=== PATIENT | female | born 1950 | race Caucasian/White ===

== ENCOUNTER 2025-03-22 08:12 | Outpatient (REF) | payer MEDICARE, OTHER, SELFPAY ==
--- NOTE | 2025-03-22 08:17 | ECG_ITS ---
Test Reason : QTC CHECK Blood Pressure : */* mmHG Vent. Rate : 73 BPM Atrial Rate : 73 BPM P-R Int : 130 ms QRS Dur : 94 ms QT Int : 418 ms P-R-T Axes : 66 2 46 degrees QTcB Int : 460 ms Normal sinus rhythm Septal infarct , age undetermined Abnormal ECG When compared with ECG of 09-Jul-2019 14:47, No significant change was found Referred By: Marielena Tolentino Electronically Signed By: JOSH STEVENS MD
--- OUTSIDE RECORDS SUMMARY | 2025-03-22 08:18 | XMS_ITS | Encounter Summary ---
Author Organization [facility] Address [address] [facility] [address] [place] [address] Phone Care Team Providers Care Cigarette Making Examiner Name Role Phone Lisa Luque OPERATIONAL INTELLIGENCE ANALYST Unavailable [phone] Nathalie Cook MD Unavailable [phone] Yogi Payan MD Unavailable [email or web address] Nataly Pratt MD Primary Care Provider Al Reagan MD Primary Care Provider Al Reagan MD Unavailable Leticia Estevez RN Unavailable [phone] Vasu Lam MD Primary Care Provider [phone] Sotero Gray MD Unavailable David Davalos MD Unavailable [phone] Sage Harrington MD Unavailable Lupe Wade TELEPHONE ANSWERER Unavailable [phone] Encounter Details Date Type Department Care Team (Late st Contact Info) Description 06/25/2017 Procedure Pass [facility], Ct Scan - [address] [address] Social History Tobacco Use Types Packs/Day Years Used Date Smoking Tobacco: Never Smokeless Tobacco: Never Alcohol Use Standard Drinks/Week Comments No 0 (1 standard drink = 0.6 oz pur e alcohol) Comments No Sex and Gender Information Value Date Recorded Sex Assigned at Female 11/08/2021 9:45 AM EDT Legal Sex Female 7:04 PM EST Gender Identity Female 11/08/2021 9:45 AM EDT Sexual Orientation Lesbian or Jenkins 11/08/2021 9: 45 AM EDT documented as of this encounter Plan of Treatment Upcoming Encounters Date Type Department Care Team (Late st Contact Info) Description 06/07/2025 10:30 AM EDT Office Visit [facility] [address] [place] [address] Vasu Lam MD [address] [place] [address], [address] [place] [address] documented as of this encounter Visit Diagnoses Not on filedocumented in this encounter Care Teams Cigarette Making Examiner Relationship Specialty Start Date End Date Nataly Agustin MD PCP - General Internal Medicine 03/25/17 12/02/22 Al Reagan MD [address] [place] [address] PCP - General Internal Medicine 12/03/22 12/07/24 Vasu Lam MD [address] [place] [address], [address] [place] [address] PCP - General Internal Medicine 12/08/24 Lisa Luque FNP [address] [place] [address] [address], [address] [place] [address] Historical LMR Provider 01/13/17 04/07/21 Nathalie Cook MD [address] [facility]. [address], [address] [place] [address] [email or web address] Historical LMR Provider 01/13/17 04/07/21 Yogi Payan MD [email or web address] Historical LMR Provider 01/13/17 04/07/21 Al Reagan MD [address] [place] [address] [email or web address] Insurance Assigned Provider 10/04/23 12/07/24 Leticia Estevez, ALISSA 10 [place] [address] [email or web address] PHCM Granite Polisher Machine 12/24/23 01/29/24 Sotero Gray MD [address] [address] [email or web address] Nephrology 12/08/24 David Davalos MD [address] [place] [address] [email or web address] Gastroenterology 12/08/24 Sage Harrington MD [address] [place] [address] [email or web address] Medical Oncology 12/08/24 Lupe Wade, TELEPHONE ANSWERER [address] [place] [address] Psychiatry 12/08/24 documented as of this encounter Additional Source Comments The information contained in this document represents components of the legal health record. It is not the complete legal health record.[facility]
--- OUTSIDE RECORDS SUMMARY | 2025-03-22 08:18 | XMS_ITS | Encounter Summary ---
Author Organization [facility] Address [address] [facility] [address] [place] [address] Phone Care Team Providers Care Electrician'S Assistant Name Role Phone Lisa Luque BOLA Unavailable [phone] Nathalie Cook MD Unavailable [phone] Yogi Payan MD Unavailable [email or web address] Unknown, Unknown Primary Care Provider UnaNataly Rodriguez MD Primary Care Provider [phone] Al Regaan MD Primary Care Provider Al Reagan MD Unavailable Leticia Estevez RN Unavailable [phone] Vasu Lam MD Primary Care Provider Sotero Gray MD Unavailable David Davalos MD Unavailable [phone] Sage Harrington MD Unavailable Lupe Wade Unavailable [phone] Encounter Details Date Type Department Care Team (Late st Contact Info) Description 01/28/2017 Ancillary Orders [facility] Department [address] [place], [place] [id number] Nataly Agustin MD 25 [place] [address] [email or web address] Post-menopausal; Visit for screening mammogram Social History Tobacco Use Types Packs/Day Years Used Date Smoking Tobacco: Never Assessed Comments Unknown Sex and Gender Information Value Date Recorded [...] Description 06/07/2025 10:30 AM EDT Office Visit [facility] [address] [place] [address] Vasu Lam MD [address] [place] [address], [address] [place] [address] [email or web address] documented as of this encounter Results * BD DXA AXIAL (SPINE) WITH HIP (03/28/2017 2:33 PM EST) Anatomical Region Laterality Modality Bone Density Bone Density 03/28/2017 2:48 PM EST Impressions 03/28/2017 2:50 PM EST Overall normal bone mineral density but there is a decrease in density at all sites assess since prior examination of March 2013. POS -[id number] Narrative 03/28/2017 2:50 PM EST This is a 66-year-old postmenopausal white female with a perceived height loss of 1.5 inches over her lifetime. She has a history of Crohn's disease. Comparison is made to prior examination of 09/17/2013. Evaluation of the lumbar spine and hips was performed and appears to be technically adequate. Total bone mineral density in the L1-L4 vertebral bodies was calculated at 1.046 gm/cm2 with a T score of 0. This falls within the WHO classification of normal. Since prior study there is a decrease in density of 5.7% which is significant at the 95% confidence interval. Total bone mineral density in the right proximal femur was calculated at 0.895 gm/cm2 with a T-score of -0.4 falling within the WHO classification of normal. Total bone mineral density in the left proximal femur was calculated at 0.859 gm/cm2 with a T-score of -0.7 falling within the WHO classification of normal. Since prior examination there is a decrease in density of 8.1% on the right and 10.0% on the left. Both are statistically significant. Procedure Note Chon Ocampo MD - 03/28/2017 This is a 66-year-old postmenopausal white female with a perceived heightloss of 1.5 inches over her lifetime. She has a history of Crohn'sdisease. Comparison is made to prior examination of 09/17/2013. Evaluation of the lumbar spine and hips was performed and appears to betechnically adequate. Total bone mineral density in the L1-L4 vertebral bodies was calculated at1.046 gm/cm2 with a T score of 0. This falls within the WHOclassification of normal. Since prior study there is a decrease in densityof 5.7% which is significant at the 95% confidence interval. Total bone mineral density in the right proximal femur was calculated at0.895 gm/cm2 with a T-score of -0.4 falling within the WHO classificationof normal. Total bone mineral density in the left proximal femur wascalculated at 0.859 gm/cm2 with a T-score of -0.7 falling within the WHOclassification of normal. Since prior examination there is a decrease indensity of 8.1% on the right and 10.0% on the left. Both are statisticallysignificant. IMPRESSION: Overall normal bone mineral density but there is a decrease in density atall sites assess since prior examination of March 2013. POS -[id number] Nataly NAIR BD BONE DENSITY DEXA Fin al Result * BI MAMMOGRAM SCREENING WITH TOMOSYNTHESIS WITH CAD (BILATERAL) (03/28/2017 1:24 PM EST) Anatomical Region Laterality Modality Breast Left, Breast Right, Breast Bilateral Bila teral Mammography 03/28/2017 3:4 9 PM EST Impressions 03/28/2017 3:53 PM EST No findings suspicious for malignancy are identified. In the absence of a worrisome palpable abnormality, annual screening mammography is recommended. BI-RADS CATEGORY: 1 - Negative. DENSITY: The breast tissue is heterogeneously dense, an appearance which lowers the sensitivity of mammography. POS [id number] Narrative 03/28/2017 3:53 PM EST COMPARISON: 04/14/2009 through 08/14/2016 Bilateral 3-D tomosynthesis with 2-D reconstructions in the CC and MLO projection. Computer-aided detection system also utilized. No new mass, asymmetry, architectural distortion or suspicious calcifications have become apparent on either side. Procedure Note Noé Mcginnis MD - 03/28/2017 COMPARISON: 04/14/2009 through 08/14/2016 Bilateral 3-D tomosynthesis with 2-D reconstructions in the CC and MLOprojection. Computer-aided detection system also utilized. No new mass, asymmetry, architectural distortion or suspiciouscalcifications have become apparent on either side. IMPRESSION: No findings suspicious for malignancy are identified. In the absence of aworrisome palpable abnormality, annual screening mammography isrecommended. BI-RADS CATEGORY: 1 - Negative. DENSITY: The breast tissue is heterogeneously dense, an appearance whichlowers the sensitivity of mammography. POS [id number] Nataly Agustin MD [facility] EXAMS Final Result documented in this encounter Visit Diagnoses Diagnosis Post-menopausal Asymptomatic postmenopausal status (age-related) (natural) Visit for screening mammogram Post-menopausal Asymptomatic postmenopausal status (age-related) (natural) Visit for screening mammogram documented in this encounter Care Teams Electrician'S Assistant Relationship Specialty Start Date End Date Unknown, Unknown, MD PCP - General 01/18/17 03/24/17 Nataly Agustin MD PCP - General Internal Medicine 03/25/17 12/02/22 Al Reagan MD [address] [place] [address] PCP - General Internal Medicine 12/03/22 12/07/24 Vasu Lam MD [address] [facility] [place] [address] PCP - General Internal Medicine 12/08/24 Lisa Luque FNP [address] [facility], [address] [place] [address] [email or web address] Historical LMR Provider 01/13/17 04/07/21 Nathalie Cook MD [address] [facility], [address] [place] [address] [email or web address] Historical LMR Provider 01/13/17 04/07/21 Yogi Payan MD Historical LMR Provider 01/13/17 04/07/21 Al Reagan MD 40 [place] [address] Insurance Assigned Provider 10/04/23 12/07/24 Leticia Estevez, RN 10 [place], [place] [id number] [facility] Telephone Maintenance Mechanic 12/24/23 01/29/24 Sotero Gray MD [address] [facility] [address] [place] [address] Nephrology 12/08/24 David Davalos MD [address] [place] [id number] [email or web address] Gastroenterology 12/08/24 Sage Harrington MD [address] [place] [address] [email or web address] Medical Oncology 12/08/24 Lupe Wade CNS [address] [place] [address] Psychiatry 12/08/24 documented as of this encounter Additional Source Comments The information contained in this document represents components of the legal health record. It is not the complete legal health record.[facility]
--- OUTSIDE RECORDS SUMMARY | 2025-03-22 08:18 | XMS_ITS | Encounter Summary ---
Author Organization [facility] Address [address] [place] [address] Phone Care Team Providers Care Tool Machine Shop Supervisor Name Role Phone Lisa Luque BOLA Unavailable [phone] Nathalie Cook MD Unavailable [phone] Yogi Payan MD Unavailable [email or web address] Unknown, Unknown Primary Care Provider Nataly Mayorga MD Primary Care Provider [phone] Al Reagan MD Primary Care Provider [phone] Al Reagan MD Unavailable Leticia Estevez RN Unavailable [phone] Vasu Lam MD Primary Care Provider [phone] Sotero Gray MD Unavailable David Davalos MD Unavailable [phone] Sage Harrington MD Unavailable Lupe Wade Unavailable [phone] Reason for Referral * Physical Therapy (Routine) - Closed Specialty Diagnoses / Procedures Referred By Arnaldo alfaro Referred To Contact Physical Therapy Diagnoses Encounter for rehabilitation David Davalos MD Phone: tel: fax: [email or web address] [facility] [address] [place] [address] Phone: tel: Referral ID Status Reason Start Date Expiration Date Visits Re quested Visits Authorized [id number] Closed 02/25/2017 02/25/2018 1 1 Encounter Details Date Type Department Care Team (Latest Contact Info) Description 02/25/2017 Transcribe Orders [facility] [address] [place] [address] David Davalos MD [address] [place] [phone] [email or web address] Encounter for rehabilitation (Primary Dx) Social History Tobacco Use Types Packs/Day Years [...] Description 06/07/2025 10:30 AM EDT Office Visit [facility] [address] [place] [address] Vasu Lam MD [address] [place] [address], [address] [place] [address] [email or web address] Scheduled Referrals Name Type Priority Associated Diagnoses Orde r Schedule Ambulatory referral to [facility] Physical Therapy Outpatient Referral Routine Encounter for rehabilitation Ordered: 02/25/2017 documented as of this encounter Visit Diagnoses Diagnosis Encounter for rehabilitation- Primary documented in this encounter Care Teams Tool Machine Shop Supervisor Relationship Specialty Start Date End Date Unknown, Unknown, MD PCP - General 01/18/17 03/24/17 Nataly Agustin MD PCP - General Internal Medicine 03/25/17 12/02/22 Al Reagan MD 40 [place] [address] PCP - General Internal Medicine 12/03/22 12/07/24 Vasu Lam MD [address] [facility], [address] [place] [address] PCP - General Internal Medicine 12/08/24 Lisa Luque FNP [address] [facility] [address], [address] [place] [address] [email or web address] Historical LMR Provider 01/13/17 04/07/21 Nathalie Cook MD [address] [facility] [address], [address] [place] [address] [email or web address] Historical LMR Provider 01/13/17 04/07/21 Yogi Payan MD Historical LMR Provider 01/13/17 04/07/21 Al Reagan MD [address] [place] [address] [email or web address] Insurance Assigned Provider 10/04/23 12/07/24 Leticia Estevez, RN [address] [place] [address] [email or web address] PHCM Clinical Support Specialist 12/24/23 01/29/24 Sotero Gray MD 15 [facility] [address] [place] [address] [email or web address] Nephrology 12/08/24 David Davalos MD [address] [place] [address] [email or web address] Gastroenterology 12/08/24 Sage Harrington MD [address] [place] [address] [email or web address] Medical Oncology 12/08/24 Lupe Wade, TOOL DESIGN ENGINEER [address] [place] [address] Psychiatry 12/08/24 documented as of this encounter Additional Source Comments The information contained in this document represents components of the legal health record. It is not the complete legal health record.[facility]
--- OUTSIDE RECORDS SUMMARY | 2025-03-22 08:18 | XMS_ITS | Encounter Summary ---
Author Organization [facility] Address [address] [place] [address] Phone Care Team Providers Care Retail Loss Prevention Specialist Name Role Phone Nataly Agustin MD Primary Care Provider [phone] Al Reagan MD Primary Care Provider Al Reagan MD Unavailable Leticia Estevez RN Unavailable Vasu Lam MD Primary Care Provider [phone] Sotero Gray MD Unavailable David Davalos MD Unavailable [phone] Sage Harrington MD Unavailable Lupe Wade [facility] Unavailable Encounter Details Date Type Department Care Team (Late st Contact Info) Description 07/23/2021 Transcribe Orders Virtual Department 30 [place] [address] Nataly Agustin MD 25 [place] [address] Breast screening (Primary Dx) Social History Tobacco Use Types [...] Description 06/07/2025 10:30 AM EDT Office Visit [facility] [address] [place] [address] Vasu Lam MD 22 [facility], [address] [place] [address] [email or web address] documented as of this encounter Results * BI MAMMOGRAM SCREENING WITH TOMOSYNTHESIS WITH CAD (BILATERAL) (08/14/2021 11:15 AM EDT) Anatomical Region Laterality Modality Breast Left, Breast Right, Breast Bilateral Bila teral Mammography 08/14/2021 12:0 6 PM EDT Impressions 08/14/2021 12:11 PM EDT No mammographic evidence of malignancy. Recommend routine annual surveillance. BI-RADS CATEGORY: 2 - Benign finding. DENSITY: The breast tissue is heterogeneously dense, which could obscure a lesion on mammography. Narrative 08/14/2021 12:11 PM EDT 70-year-old female with no current breast symptoms. Comparison made to previous on 06/02/2020 and as far back as 08/14/2016. Interpretation made in conjunction with computer-aided detection and tomosynthesis. The breasts are heterogeneously dense, which may obscure small masses. Chronic bilateral benign calcifications. There are no suspicious masses, areas of architectural distortion, or suspicious clusters of microcalcifications. Procedure Note Vasu Vences MD - 08/14/2021 70-year-old female with no current breast symptoms. Comparison made toprevious on 06/02/2020 and as far back as 08/14/2016. Interpretation made inconjunction with computer-aided detection and tomosynthesis. The breasts are heterogeneously dense, which may obscure small masses.Chronic bilateral benign calcifications. There are no suspicious masses, areas of architectural distortion, orsuspicious clusters of microcalcifications. IMPRESSION: No mammographic evidence of malignancy. Recommend routine annualsurveillance. BI-RADS CATEGORY: 2 - Benign finding. DENSITY: The breast tissue is heterogeneously dense, which could obscurea lesion on mammography. Nataly Agustin MD IMG MG EXAMS Final Result documented in this encounter Visit Diagnoses Diagnosis Breast screening- Primary Breast screening, unspecified Breast screening Breast screening, unspecified documented in this encounter Care Teams Retail Loss Prevention Specialist Relationship Specialty Start Date End Date Nataly Agustin MD PCP - General Internal Medicine 03/25/17 12/02/22 Al Reagan MD 40 [place] [address] PCP - General Internal Medicine 12/03/22 12/07/24 Vasu Lam MD [address] [place] [address], [address] [place] [address] PCP - General Internal Medicine 12/08/24 Al Reagan MD 40 [place] [address] Insurance Assigned Provider 10/04/23 12/07/24 Leticia Estevez, RN [address] [place] [address] PSYCHIATRIC Shellfish Shucker 12/24/23 01/29/24 Sotero Gray MD 15 [facility] [address] [place] [address] [email or web address] Nephrology 12/08/24 David Davalos MD [address] [place] [address] [email or web address] Gastroenterology 12/08/24 Sage Harrington MD [address] [place] [address] [email or web address] Medical Oncology 12/08/24 Lupe Wade, CRAYON PAINTER [address] [place] [address] Psychiatry 12/08/24 documented as of this encounter Additional Source Comments The information contained in this document represents components of the legal health record. It is not the complete legal health record.[facility]
--- OUTSIDE RECORDS SUMMARY | 2025-03-22 08:18 | XMS_ITS | Clinical Summary ---
Author Organization [facility] Address [address] [place] [address] Phone Care Team Providers Care Connie Scratcher Name Role Phone Vasu Lam MD Primary Care Provider [phone] Sotero Gray MD Unavailable David Davalos MD Unavailable [phone] Sage Harrington MD Unavailable Lupe Wade FUNCTIONAL DIRECTOR Unavailable [phone] Allergies Active Allergy Reactions Criticality Noted Date Comments Amoxicillin Hives,Swelling 02/13/2017 Other reaction(s): swelling Other Reaction(s): facial swelling Medications cholecalciferol (VITAMIN D3) 2,000 unit capsule Take 2,000 Units by mouth daily. Active nortriptyline (PAMELOR) 10 MG capsuleIndications :depression Take 20 mg by mouth nightly at bedtime. Indications: depression Active b complex vitamins capsule Take 1 capsule by mouth daily. Active citalopram (CELEXA) 20 MG tablet Take 20 mg by mouth daily. 2 Active lamoTRIgine (LAMICTAL) 25 MG IMMEDIATE release tablet Take 25 mg by mouth 2 (two) times a day. 2 Active albuterol 90 mcg/actuation inhalerIndications :Intrinsic asthma with exacerbation, severe persistent Inhale 2 puffs into the lungs every 4 (four) hours as needed for wheezing or shortness of breath/dyspnea (or coughing). 8 g 1 4 Active loratadine 10 mg Cap Take 10 mg by mouth as needed. 3 Active levothyroxine (SYNTHROID, LEVOTHROID) 50 MCG tabletIndications: Other specified hypothyroidism TAKE 1 TABLET BY MOUTH EVERY DAY IN THE MORNING 90 tablet 3 5 Active fluticasone furoate-vilanteroL (BREO ELLIPTA) 200-25 mcg/dose inhalerIndications :Intrinsic asthma with exacerbation, severe persistent 1 inhalation daily, rinse and spit after use 60 each 11 5 Active OLANZapine (ZYPREXA) 7.5 MG tablet Take 7.5 mg by mouth nightly at bedtime. Active L-methylfolate (DEPLIN) 15 mg Tab Take 15 mg by mouth daily. Active sodium bicarbonate 650 mg tablet Take 650 mg by mouth 3 (three) times a day. Active magnesium oxide (MAGOX) 400 mg (241.3 mg elemental) tabletIndications: Ileostomy present Take 1 tablet (400 mg total) by mouth nightly at bedtime. 90 tablet 2 5 Active loperamide (IMODIUM) 2 mg capsuleIndications :Chronic diarrhea Take 1 capsule (2 mg total) by mouth 4 (four) times a day as needed for diarrhea. 360 capsule 2 5 Active metoprolol tartrate (LOPRESSOR) 25 MG tabletIndications: Tachycardia,Benign essential hypertension TAKE 1/2 OF A TABLET (12.5 MG TOTAL) BY MOUTH TWICE A DAY 90 tablet 3 5 Active rosuvastatin (CRESTOR) 5 MG tablet Take 5 mg by mouth 3 (three) times a week. 5 Active LORazepam (ATIVAN) 0.5 MG tablet 5 Active Active Problems Problem Noted Date Diagnosed Date Stage 3b chronic kidney disease 12/08/2024 Assessment & Plan (12/08/2024 12:17 PM EDT): Renal function has been stable. Importance of good blood pressure control is reviewed. She should avoid nonsteroidals. She will follow-up as planned with nephrology. 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 Followed by [facility] oncology Assessment & Plan (12/08/2024 12:16 PM EDT): Asymptomatic. Follow-up as planned with [facility] oncology Coronary artery calcification seen on CAT scan 0 12/08/2024 Assessment & Plan (12/08/2024 12:16 PM EDT): Asymptomatic. Agree with treatment with low-dose statin. She should avoid aspirin due to Crohn's disease. Impaired fasting glucose 12/08/2024 Chronic diarrhea 09/23/2024 Severe major depression with psychotic features 09/23/2024 Overview (12/08/2024): Hospitalized July 2024, started on olanzapine Assessment & Plan (12/08/2024 12:18 PM EDT): Doing better on olanzapine with no significant side effects. She will continue with her current medication and follow-up as planned with psychiatry. Assessment & Plan (09/23/2024 11:17 AM EDT): The patient will be able to get the olanzapine and lorazepam through her psychiatrist nurse practitioner in [place] Mrs. Wade. If need be we can bridge her with medication the olanzapine and lorazepam if she is having trouble before that follow-up appointment. Apparently the current regimen is working very well. Ileostomy present 10/27/2023 Assessment & Plan (09/23/2024 11:15 AM EDT): In accordance with the patient's requests we will call in the Imodium 2 mg 4 times daily as needed and will also call in the magnesium oxide while checking a magnesium level and a Chem-7 in the setting of chronic kidney disease stage IIIb. We can bring the kidney function and electrolytes to the attention of her machine greaser if needed. Assessment & Plan (10/27/2023 11:09 AM EDT): The patient promises to be moderate about her intake of corn and will continue to monitor herself for fluid intake versus ileostomy output regarding prerenal azotemia and lightheadedness, dehydration. Abdominal wall abscess 05/01/2022 Assessment & Plan (06/25/2023 6:49 PM EDT): With the ileostomy we need to keep a close eye on electrolytes kidney function especially where it is easy to dehydrate. Assessment & Plan (06/21/2022 9:11 AM EDT): Now resolved Assessment & Plan (05/01/2022 12:50 PM EST): Currently remains on abx - Doxy and has a JOSE drain in place F/u surgery To ER for severe sxs Kidney stone 05/01/2022 Assessment & Plan (05/01/2022 12:51 PM EST): Now resolved Stay hydrated Mild intermittent asthma without complication Assessment & Plan (06/25/2023 6:47 PM EDT): Lungs clear will continue the albuterol as needed for exacerbations. Assessment & Plan (06/21/2022 9:11 AM EDT): stable Assessment & Plan (05/01/2022 12:53 PM EST): As discussed, Mild exacerbation Risks/benefits of therapy explained, including MAT and other treatment options. Educated on inhaler uses. Crohn's disease of small and large intestines with complication 10/05/2021 Assessment & Plan (12/08/2024 12:17 PM EDT): Doing well, follow-up as planned with gastroenterology. Assessment & Plan (11/08/2021 10:21 AM EDT): Overall improved but still with small amount of drainage from sinus to umbilicus Patient to f/u with surgeon as to the plan Adjustment disorder with mixed anxiety and depre ssed mood 10/05/2021 Assessment & Plan (06/21/2022 9:11 AM EDT): feeling great Assessment & Plan (10/08/2021 7:48 AM EDT): Stable on meds Rash 10/05/2021 Assessment & Plan (05/01/2022 12:52 PM EST): Labial rash ? Vaginitis due to abx Trial of clotrimazole cream No soap when washing, water only Assessment & Plan (11/08/2021 10:21 AM EDT): Improving with triamcinolone Assessment & Plan (10/08/2021 7:49 AM EDT): Rash on anterior ankle Suspect possible eczematous plaque or due to constant irritation Trial triamcinolone With occlusive dressing Angular cheilitis 09/21/2021 Assessment & Plan (10/08/2021 7:48 AM EDT): Trial triamcinolone To derm for further eval if needed educ to minimize use Essential hypertension 09/21/2021 Assessment & Plan (11/01/2024 1:21 PM EDT): Blood pressure is well-controlled continue the antihypertensives. She may be seeing family medicine in [place] [facility] November going forward. In regards to her mood stabilizers and her tricyclic for neuropathic pain she will consider coming off of some of the behavioral health medicine due to side effects of fatigue. She is working with her psychiatrist to come off of the olanzapine and then will see if this was adequate enough to reduce her morning drowsiness. Other culprits could be carryover of the tricyclic in which case she could decrease down to 10 mg nightly. In regards to the electrolytes that were off last time, we will pursue the most recent electrolyte panel done through [facility] oncology. Assessment & Plan (05/10/2024 2:55 PM EST): Blood pressure well-controlled continue the antihypertensives as such. Assessment & Plan (10/27/2023 11:08 AM EDT): Blood pressure well-controlled continue antihypertensives as such and follow-up in 6 months for return physical. Electrolytes kidney function reviewed from recent hospital stay and negative for pathology. Assessment & Plan (01/01/2023 2:51 PM EDT): Blood pressure well controlled continue antihypertensive as such, we will follow-up in January on her wellness visit. We will do labs at that time. Continue the metoprolol at 12.5 mg p.o. twice daily. Assessment & Plan (02/07/2022 11:18 AM EST): controlled Assessment & Plan (11/08/2021 10:20 AM EDT): May not need to be on meds Long discussion today Trial off meds educ patient on red flags Assessment & Plan (10/08/2021 7:46 AM EDT): Stable on meds Pure hypercholesterolemia 09/21/2021 Assessment & Plan (10/08/2021 7:46 AM EDT): Unclear if stable, check lab Acquired hypothyroidism 09/21/2021 Assessment & Plan (12/08/2024 12:16 PM EDT): Clinically euthyroid. TSH is on the low side of the normal range. Would consider decreasing dose of levothyroxine if TSH continues in the same range. Assessment & Plan (05/10/2024 2:55 PM EST): No overt signs of hypo or hyperthyroidism continue Levoxyl at current dosing check TSH Assessment & Plan (10/27/2023 11:07 AM EDT): No clinical signs of hypothyroidism, exam unremarkable, continue Synthroid at current dosing and recheck in 6 months on physical. Assessment & Plan (06/25/2023 6:49 PM EDT): No overt signs of hyper or hypothyroidism check TSH with reflex. Assessment & Plan (10/08/2022 11:53 AM EDT): Stable on med Assessment & Plan (10/08/2021 7:46 AM EDT): Unclear if stable, check lab Vitamin D deficiency, unspecified 09/21/2021 Assessment & Plan (10/08/2022 11:53 AM EDT): Stable on supplementation Assessment & Plan (10/08/2021 7:47 AM EDT): Unclear if stable, check lab Resolved Problems Problem Noted Date Diagnosed Date Resolved Date Posterior pain of hip 09/23/20242024 Pain of left heel 09/19/2023 12/08/2024 Assessment & Plan (09/19/2023 5:02 PM EDT): Awaiting xray results. Continue to rest, wear supportive shoes. Consider referral to podiatry. Left ankle swelling 09/19/2023 12/09/19 25 Assessment & Plan (09/19/2023 5:03 PM EDT): Appears to be related to new pain in left heel/foot. Will monitor ankle circumference over the weekend. If any progressive erythema or worsened symptoms she will follow up emergently. Consider u/s duplex veins left lower extremity if not resolving. H/O ileostomy 06/25/2023 12/08/2024 Intrinsic asthma with exacer bation, severe persistent 06/25/2023 12/08/2024 Elevated blood pressure read ing without diagnosis of hypertension 05/01/2022 12/08/2024 Assessment & Plan (06/25/2023 6:46 PM EDT): Will continue to monitor blood pressure, today's blood pressure was within normal limits. Assessment & Plan (12/04/2022 9:15 AM EDT): I explained to the patient that it is important not to treat a number and that there might be a reason that the heart rate is up including insensible losses. She will keep up on her fluid intake. We can start her off on a very low-dose of metoprolol and because of the ileostomy will prescribe her metoprolol to tartrate which she can take twice daily. At the lowest dose it would be 12.5 mg and she should be very mindful about orthostasis or increasing lightheadedness in which we would cease the metoprolol. We can then in 4 weeks on a return visit increase the metoprolol to full-strength or sooner if her blood pressure log suggest to do so. Follow-up in 4 weeks. Assessment & Plan (10/08/2022 11:52 AM EDT): Unclear if controlled, Check Bps, 2x per week, call if persistantly > 140/90, Goal BP is < or = to 130/80 Assessment & Plan (06/21/2022 9:12 AM EDT): Bps currently controlled off BP meds Assessment & Plan (05/01/2022 12:51 PM EST): Reviewed list of home bps, relatively reassuring Check Bps, 2x per week, call if persistantly > 140/90, Goal BP is < or = to 130/80 Attempted to reassure patient today during visit Routine general medical exam ination at a health care facility 02/07/2022 12/08/2024 Assessment & Plan (02/07/2022 11:17 AM EST): Overall stable Declines 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 as she states that she's had ESTHER with BSO S/p Colectomy for Crohn's +SBE Mammos UTD Tachycardia 02/07/2022 12/08/2024 Assessment & Plan (02/07/2022 11:18 AM EST): Unclear etiology Check labs and MCT To ER for severe symptoms Hematuria 02/07/2022 12/08/2024 Assessment & Plan (02/07/2022 11:18 AM EST): F/u Urology Allergic conjunctivitis of both eyes 12/18/2021 12/08/2024 History of atrial fibrillation 11/08/2021 12/08/2024 Assessment & Plan (05/01/2022 12:51 PM EST): Currently in Sinus Rhythm, patient educated on red flags and concerning sxs Assessment & Plan (11/08/2021 10:20 AM EDT): Has post operative afib post hernia incarceration repair No further episodes since surgery, hopefully no longer an issue Patient denies any symptoms Bps on low side as is HR Taper off metoprolol Need for hepatitis C screening test 10/05/2021 12/08/2024 Assessment & Plan (10/08/2021 7:49 AM EDT): Patient agrees Weight gain 10/05/2021 12/08/2024 Assessment & Plan (11/08/2021 10:22 AM EDT): Weight currently stable Continues to work on healthy diet and exercise Assessment & Plan (10/08/2021 7:47 AM EDT): Long discussion Needs to focus on low carb diet and exercise Hyperglycemia 10/05/2021 12/08/2024 Assessment & Plan (10/27/2023 11:08 AM EDT): More recently glucose levels normal, check hemoglobin A1c in 6 months on physical exam. Assessment & Plan (10/08/2021 7:46 AM EDT): Prediabetes: As discussed during visit today, Educated re risk of Diabetes and lifestyle changes needed Check lab Other specified anemias 09/21/202111/29 Assessment & Plan (11/08/2021 10:15 AM EDT): Has resolved Assessment & Plan (10/08/2021 7:45 AM EDT): Unclear if stable, check lab Crohn's disease 01/18/2017 12/08/2024 Assessment & Plan (05/01/2022 12:50 PM EST): Off Humira for the abscess Patient aware of increased risk of infections due to the Humira Assessment & Plan (02/07/2022 11:18 AM EST): Stable f/u GI Assessment & Plan (10/08/2021 7:48 AM EDT): Stable f/u GI Encounters Date Type Department Care Team Description 03/11/2025 2:20 PM EST - 03/11/2025 11:59 PM EST Hospital Encounter [address] [address] Andi Rivers MD Discharge Disposition: Home or Self Care 03/10/2025 Telephone [facility] [address] [place] [address] Vasu Lam MD Medication Management 02/09/2025 12:30 PM EST Office Visit [facility] [address] [address] Gayathri Champion PA-C from Last 3 Months Immunizations Immunization Administration Dates Next Due COVID-19 (Pre-01/20) Pfizer Vaccine, mRNA, PF 06/21/2020 [id number] FORMULATION 06/02/2009 INFLUENZA, SPLIT VIRUS, TRIV ALENT W/ PRESERVATIVE IM 02/10/2006 Influenza High-Dose Quadriva lent Preservative Free IM 12/16/2022 Influenza High-Dose Trivalen t Preservative Free IM 01/08/2024,12/25/2018,01/05/2017 Influenza Quadrivalent Adjuv anted Preservative Free IM 01/03/2022,12/24/2020 Influenza Recombinant Wilmer valent Preservative Free IM 12/28/2019 Influenza Trivalent Adjuvant ed Preservative free IM 03/03/2018 Influenza, whole 06/02/2009 Pneumococcal conjugate PCV13 03/20/2018 Pneumococcal polysaccharide PPSV23 04/25/2016 RSV Vaccine (bivalent) 12/16/2022 Td, unspecified formulation 04/12/2005 Tdap 12/16/2022,01/28/2018 Zoster recombinant 05/25/2020,03/06/2020 Family History Medical History Relation Comments Breast cancer Cousin Dementia Father Prostate cancer Father 2001 Alzheimer's disease Mother Alzheimer's ? ( of this). Bladder Cancer Mother Breast cancer Mother Depression Mother Glaucoma Mother Relation Status Comments Cousin Alive Father Mother Social History Tobacco Use Types Packs/Day Years Used Date Smoking Tobacco: Never Passive Smoke Exposure: Past Smokeless Tobacco: Never Tobacco Cessation:Counseling Given: Not Answered Passive Exposure Comments:[employer]/ place of employment Alcohol Use Standard Drinks/Week Comments Not Currently 0 (1 standard drink = 0.6 oz pur e alcohol) 4 beers a month, if that Home Health Assessment: Transportation Answer Date Recorded Lack of Transportation (Medical) No 05/11/2022 Lack of Transportation (Non-Medical) No 05/11/2022 Patient Unable or Declines to Respond No 05/11/2022 Education Answer Date Recorded Are you interested in more education? Not on manda e 07/25/2022 Are you concerned about learning? Not on file 07/25/2022 No 07/25/2022 No 07/25/2022 Digital Access Answer Date Recorded No 08/26/2022 No 08/26/2022 Reliable internet access at home? Not on file 08/26/2022 Device with a working camera? Not on file Intimate Partner Violence Answer Date R ecorded Denied Basic Needs Not on file 05/09/2024 In the past 12 months have y ou been in a relationship with a person who hurts, threatens, or tries to control you? No 05/09/2024 Worried food would run out Not on file 05/09 In the past 12 months have y ou been in a relationship with a person who hurts, threatens, or tries to control you? No 05/09/2024 Comments No Sex and Gender Information Value Date Recorded Sex Assigned at Female 11/08/2021 9:45 AM EDT Legal Sex Female 7:04 PM EST Gender Identity Female 11/08/2021 9:45 AM EDT Sexual Orientation Lesbian or Jenkins 11/08/2021 9: 45 AM EDT Last Filed Vital Signs Vital Sign Reading Time Taken Comments Blood Pressure 125/68 02/09/2025 12:24 PM EST Pulse 74 02/09/2025 12:24 PM EST Temperature 36.3 C (97.3 F) 12/08/2024 9:34 AM EDT Respiratory Rate 20 02/09/2025 12:24 PM EST Oxygen Saturation 100% 02/09/2025 12:24 PM EST Inhaled Oxygen Concentration - - Weight 69.4 kg (153 lb) 02/09/2025 12:24 PM EST Height 157.9 cm (5' 2.16 ) 02/09/2025 12:[address] Body Mass Index 27.84 02/09/2025 12:24 PM EST Plan of Treatment Upcoming Encounters Date Type Department Care Team (Late st Contact Info) Description 06/07/2025 10:30 AM EDT Office Visit [facility] [address] [place] [address] [place] [address] Vasu Lam MD [address] [place] [address], [address] [place] [address] [email or web address] Health Maintenance Due Date Last Done Comments LIPID PANEL 01/30/2023 01/30/2022, 04/25/2014 INFLUENZA VACCINE (#1) 2024 , 12/16/2022, 01/03/2022, Additional history exists COVID-19 VACCINE (2024- season) 2024 08/27/2024, 01/08/2024, 09/24/2023, Additional history exists TSH LEVEL 05/10/2025 05/10/2024, 0309/2023, 02/24/2023, Additional history exists BLOOD PRESSURE 08/09/2025 02/09/2025 DEPRESSION SCREENING 12/07/2025 12/07/2024 Adult Td,Tdap Booster 12/16/2032 12/16/2022 , 01/28/2018, 04/12/2005 PNEUMOCOCCAL VACCINES (50+ years) Completed 03/20/2018, 04/25/2016 ZOSTER VACCINES Completed 05/25/2020, 03/06/2020 HEPATITIS C SCREENING Completed 01/30/2022, 019 RSV VACCINE Completed 12/16/2022 SMOKING STATUS SCREENING (Once After 26 Yrs) Completed 02/09/2025 OSTEOPOROSIS SCREENING INITIAL (ONE-TIME) Completed 03/11/2025, 06/02/2020, 03/28/2017 HEPATITIS A VACCINES Aged Out No long er eligible based on patient's age to complete this topic HIB VACCINES Aged Out No longer eligi ble based on patient's age to complete this topic MENINGOCOCCAL VACCINES (ACWY) Aged Out No longer eligible based on patient's age to complete this topic MENINGOCOCCAL VACCINES (B) Aged Out N o longer eligible based on patient's age to complete this topic Medical Devices Not on file Procedures Procedure Name Priority Date/Time Associated Diagnosis Comments BD DXA AXIAL (SPINE) WITH HIP Routine 03/11/2025 2:43 PM EST Screening for osteoporosis TSH WITH REFLEX Routine 05/10/2024 2:59 PM EST Acquired hypothyroidism LIPID PANEL Routine 01/30/2022 10:11 AM EDT Other hyperlipidemia HEPATITIS C ANTIBODY, QUALITATIVE Routine 01/30/2022 10:11 AM EDT Need for hepatitis C screening test from Last 3 Months or Most Recently Relevant to Health Maintenance Results * BD DXA AXIAL (SPINE) WITH HIP (03/11/2025 2:43 PM EST) Anatomical Region Laterality Modality Bone Density Bone Density 03/11/2025 2:38 PM EST Impressions 03/14/2025 1:55 PM EST Interpretation: Osteopenia. Narrative 03/14/2025 1:55 PM EST Referred By: ANDI RIVERS Indications: Postmenopausal Scanner: HALKAR A with serial# of [id number] located at [facility] Bone Density Scan (DXA) 03/11/25 Details of prior DXA scans are available by clicking View Full Report BMD T- Z- Skeletal Site gm/cm2 score score BMD Change Since Prior Scan ------ ----- ----- PA Spine (L1-L4) 1.061 0.10 2.50 0.015 (stable) since 03/28/2017 Total Hip (Right) 0.902 -0.30 1.50 0.007 (stable) since 03/28/2017 Femoral Neck (Right) 0.688 -1.50 0.60 0.028 (stable) since 03/28/2017 ------ ----- ----- * Denotes significant change when >= 0.022 g/cm2 for the spine, 0.027 g/cm2 for the total hip, 0.029 g/cm2 for the femoral neck. Interpretation: Osteopenia. Technical Quality: The PA Spine scan was of marginal quality because of scoliosis (which can decrease or increase BMD). FRAX: Based on FRAX(r) 3.6 ([place] White female), this patient's likelihood of hip fracture is 2.1% and major osteoporotic fracture is 11% over the next 10 years. The patient reported no risks of fracture. Reviewed By: Carlos Jamil MD on 03/14/2025 13:55:15 Additional Information: -World Health Organization criteria classify adults based on lowest T-score at PA spine, hip or forearm: Normal (T-score >= -1.0), Osteopenia (T-score between -1 and -2.5), or Osteoporosis (T-score <= -2.5). At [facility], T-scores are compared to peak bone density of a young white gender matched reference population. - For premenopausal women and men under the age of 50, Z-scores (comparison to age, gender, and ethnicity matched reference population) are used: Above expected range for age (Z-score >= 2.0), Within expected range of age (Z-score 1.9 to -1.9), or Below expected range for age (Z-score <= -2.0). - The Bone Health and Osteoporosis Foundation recommends that treatment be considered in men aged more than 50 years and in postmenopausal women with ANY of the following: Prior hip or vertebral fractures; T-score of <= -2.5 at the PA spine or hip; or 10 year fracture probability by FRAX of >= 3% for the hip or >= 20% for major osteoporotic fracture. - The FRAX algorithm (https://www.sheng.ac.uk/FRAX/tool.aspx) is designed to predict 10-year fracture risk in treatment-naive adults between the ages of 40 and 90. It is not intended to be used in those receiving pharmacologic osteoporosis treatment. - The TBS is derived from the texture of the DXA spine image and has been shown to be related to bone microarchitecture and fracture risk. This data provides information independent of BMD value. It adds to fracture risk assessment with a FRAX adjusted for TBS score. If your patient had a TBS and qualified for a FRAX score, the reported FRAX score has been adjusted for TBS. TBS Score Interpretation 1.350 and greater Normal bone microarchitecture 1.200 to 1.350 Partially degraded bone microarchitecture 1.200 and less Degraded bone microarchitecture - Including race/ethnicity in the generation of T- or Z-scores or in the FRAX calculation is complicated, and currently undergoing active review to ensure that we can give patients the best information on their risk of fracture. - Some prior studies may not be compatible with our comparison software. - Click on View Full Report to see subsequent pages with images and prior bone density results. Procedure Note Carlos Jamil MD - 03/14/2025 Referred By: ANDI RIVERS Indications: Postmenopausal Scanner: HALKAR A with serial# of [id number] located at [facility] Bone Density Scan (DXA) 03/11/25 Details of prior DXA scans are available by clicking View Full Report BMD T- Z- Skeletal Site gm/cm2 score score BMD Change Since Prior Scan ------ ----- PA Spine (L1-L4) 1.061 0.10 2.50 0.015 (stable) since03/28/2017 Total Hip (Right) 0.902 -0.30 1.50 0.007 (stable) since03/28/2017 Femoral Neck (Right) 0.688 -1.50 0.60 0.028 (stable) since03/28/2017 ------ ----- * Denotes significant change when >= 0.022 g/cm2 for the spine, 0.027g/cm2 for the total hip, 0.029 g/cm2 for the femoral neck. Interpretation: Osteopenia. Technical Quality: The PA Spine scan was of marginal quality because of scoliosis (which can decrease or increase BMD). FRAX: Based on FRAX(r) 3.6 ([place] White female), this patient's likelihoodof hip fracture is 2.1% and major osteoporotic fracture is 11% over the next10 years. The patient reported no risks of fracture. Reviewed By: Carlos Jamil MD on 03/14/2025 13:55:15 Additional Information: -World Health Organization criteria classify adults based on lowestT-score at PA spine, hip or forearm: Normal (T-score >= -1.0), Osteopenia (T-score between -1 and -2.5), or Osteoporosis (T-score <= -2.5). At [facility], T-scores are compared to peak bone density of a young white gender matched reference population. - For premenopausal women and men under the age of 50, Z-scores(comparison to age, gender, and ethnicity matched reference population) are used:Above expected range for age (Z-score >= 2.0), Within expected range of age (Z-score 1.9 to -1.9), or Below expected range for age (Z-score <= -2.0). - The Bone Health and Osteoporosis Foundation recommends that treatment be considered in men aged more than 50 years and in postmenopausal women with ANY of the following: Prior hip or vertebral fractures; T-score of <= -2.5 at the PA spine or hip; or 10 year fracture probability by FRAX of >= 3%for the hip or >= 20% for major osteoporotic fracture. - The FRAX algorithm (https://www.sheng.ac.uk/FRAX/tool.aspx) is designed to predict 10-year fracture risk in treatment-naive adultsbetween the ages of 40 and 90. It is not intended to be used in those receiving pharmacologic osteoporosis treatment. - The TBS is derived from the texture of the DXA spine image and has been shown to be related to bone microarchitecture and fracture risk. This data provides information independent of BMD value. It adds to fracture risk assessment with a FRAX adjusted for TBS score. If your patient had a TBSand qualified for a FRAX score, the reported FRAX score has been adjusted for TBS. TBS Score Interpretation 1.350 and greater Normal bone microarchitecture 1.200 to 1.350 Partially degraded bone microarchitecture 1.200 and less Degraded bone microarchitecture - Including race/ethnicity in the generation of T- or Z-scores or in the FRAX calculation is complicated, and currently undergoing active review to ensure that we can give patients the best information on their risk of fracture. - Some prior studies may not be compatible with our comparison software. - Click on View Full Report to see subsequent pages with images andprior bone density results. IMPRESSION: Interpretation: Osteopenia. us Andi NAIR BD BONE DENSITY DEXA Final R esult * TSH with reflex (05/10/2024 2:59 PM EST) TSH 0.84 0.27 - 4.20 uIU/mL [facility] Blood 05/10/2024 2:59 PM EST 05/10/2024 3:02 PM EST us Andi Rivers MD LAB BLOOD BKR ORDERABLES Final R esult Performing Organization Address City/[facility]/ZIP Co de Phone Number [address] [address] * Hepatitis C antibody, qualitative (01/30/2022 10:11 AM EDT) HCV NON-REACTIV E NON-REACTI VE [facility] Blood 01/30/2022 10:1 1 AM EDT 01/30/2022 10:15 AM EDT us Nataly Agustin MD LAB BLOOD BKR ORDERABLES Fin al Result Performing Organization Address [facility] Co de Phone Number [address] [address] * (ABNORMAL) Lipid panel (01/30/2022 10:11 AM EDT) HDL 99 mg/dL [facility] Comment: Interpretation <40 mg/dL: Low HDL cholesterol (major risk factor for CHD) Greater than or equal to 60 mg/dL: High HDL cholesterol ( negative risk factor for CHD) HDL - cholesterol is affected by a number of factors, e.g. smoking, excerise, hormones, sex and age. CHOLESTEROL 204 0 - 240 mg/dL [facility] TRIGLYCERIDES 84 30 - 160 mg/dL [facility] LDL 88 50 - 129 mg/dL [facility] Comment: LDL levels in terms of risk for coronary heart disease: <100 mg/dL: Optimal 100-129 mg/dL: Near or above optimal 130-159 mg/dL: Borderline high 160-189 mg/dL: High >190 mg/dL: Very High CARDIAC RISK RATIO 2.1(L) 3.3 - 4.4 C [facility] Blood 01/30/2022 10:1 1 AM EDT 01/30/2022 10:15 AM EDT Nataly Agustin MD LAB BLOOD BKR ORDERABLES Fin al Result [facility] [address] [place] [address] from Last 3 Months or Most Recently Relevant to Health Maintenance Insurance MEDICARE PART A & B Member Subscriber Plan / Payer (Ef fective 2014-Present) Name:Lizette Almeida Member ID:[id number] Relation to Subscriber:Self Name:Lizette Almeida Subscriber ID:[id number] Payer ID:[id number] Group ID:Not on file Type:Medicare Address: [facility] [address] [address] [facility] MEDICARE SUPPLEMENT MEDICARE PART A & B Member Subscriber Plan / Payer (Ef fective 2014-Present) Name:Lizette Almeida Member ID:[id number] Relation to Subscriber:Self Name:Lizette Almeida Subscriber ID:[id number] Payer ID:[id number] Group ID:Not on file Type:Medicare Address: [employer] [address] [place] [phone] [facility] MEDICARE SUPPLEMENT MEDICARE PART A & B Member Subscriber Plan / Payer ( fective 2014-Present) Name:Lizette Almeida Member ID:[id number] Relation to Subscriber:Self Name:Lizette Almeida Subscriber ID:[id number] Payer ID:[id number] Group ID:Not on file Type:Medicare Address: [employer] [facility] [address] MEDICARE SUPPLEMENT MEDICARE PART A & B [employer] MEDICARE SUPPLEMENT MEDICARE PART A & B [employer] MEDICARE SUPPLEMENT MEDICARE PART A & B MEDICARE SUPPLEMENT MEDICARE PART A & B [facility] [employer] MEDICARE SUPPLEMENT MEDICARE PART A & B [facility] [employer] MEDICARE SUPPLEMENT MEDICARE PART A & B [facility] [employer] MEDICARE SUPPLEMENT Care Teams Connie Scratcher Relationship Specialty Start Date End Date Vasu Lam MD [address] [facility] [place] [address] [email or web address] PCP - General Internal Medicine 12/08/24 Sotero Gray MD [address] [facility] [address] [place] [address] Nephrology 12/08/24 David Davalos MD [address] [place] [address] Gastroenterology 12/08/24 Sage Harrington MD [address] [place] [address] [email or web address] Medical Oncology 12/08/24 Lupe Wade CNS [address] [place] [address] Psychiatry 12/08/24 Additional Source Comments The information contained in this document represents components of the legal health record. It is not the complete legal health record.[facility]
--- OUTSIDE RECORDS SUMMARY | 2025-03-22 08:18 | XMS_ITS | Encounter Summary ---
Author Organization [facility] Address [address] [facility] [address] [place] [address] Phone Care Team Providers Care Hem Marker Name Role Phone Lisa Luque ANALYST PROGRAMMER Unavailable [phone] Nathalie Cook MD Unavailable Yogi Payan MD Unavailable [email or web address] Nataly Agustin MD Primary Care Provider Al Reagan MD Primary Care Provider Al Reagan MD Unavailable Leticia Estevez RN Unavailable [phone] Vasu Lam MD Primary Care Provider [phone] Sotero Gray MD Unavailable David Davalos MD Unavailable [phone] Sage Harrington MD Unavailable Lupe Wade TELETYPESETTER MONITOR Unavailable Encounter Details Date Type Department Care Team (Late st Contact Info) Description 02/29/2020 Ancillary Orders Virtual Department [address] [place] [address] Nataly Agustin MD [address] [place] [address] Breast screening; Post-menopausal Social History Tobacco Use Types Packs/Day Years [...] Description 06/07/2025 10:30 AM EDT Office Visit [facility] [address] [place] [address] [place] [address] Vasu Lam MD [address] [facility] [place] [address] [email or web address] documented as of this encounter Results * BD DXA AXIAL (SPINE) WITH HIP (06/02/2020 11:01 AM EST) Anatomical Region Laterality Modality Bone Density Bone Density 06/02/2020 11:0 2 AM EST Impressions 06/02/2020 11:05 AM EST Bone mineral density again within normal limits. No statistically significant changes from 03/28/2017. Narrative 06/02/2020 11:05 AM EST This is a 69-year-old postmenopausal female with a lifetime perceived height loss of 1.5 inches. Compared with the previous study dated 03/28/2017. Evaluation of the lumbar spine and both hips is obtained and appears technically adequate. The lumbar spine from L1 through L4 discloses a total bone mineral density of 1.026 g/cm2 with a T-score of -0.2. This is in the normal range. No statistically significant change from 03/28/2017. The right hip (total) has a total bone mineral density of 0.904 g/cm2 with a T-score of -0.3. This is in the normal range. No statistically significant change from 03/28/2017. The right hip (neck) has a total bone mineral density of 0.701 g/cm2 with a T- score of -1.3. The left hip (total) has a total bone mineral density of 0.876 g/cm2 for a T- score of -0.5. This is in the normal range. No statistically significant change from 03/28/2017 The left hip (neck) has a total bone mineral density of 0.717 g/cm2 with a T- score of -1.2. Procedure Note Johnny Gabriel MD - 06/02/2020 This is a 69-year-old postmenopausal female with a lifetime perceivedheight loss of 1.5 inches. Compared with the previous study dated 03/28/2017. Evaluation of the lumbar spine and both hips is obtained and appearstechnically adequate. The lumbar spine from L1 through L4 discloses a total bone mineral densityof 1.026 g/cm2 with a T-score of -0.2. This is in the normal range. Nostatistically significant change from 03/28/2017. The right hip (total) has a total bone mineral density of 0.904 g/yz3zljo a T- score of -0.3. This is in the normal range. No statisticallysignificant change from 03/28/2017. The right hip (neck) has a total bone mineral density of 0.701 g/cm2 witha T- score of -1.3. The left hip (total) has a total bone mineral density of 0.876 g/cm2 for aT- score of -0.5. This is in the normal range. No statisticallysignificant change from 03/28/2017 The left hip (neck) has a total bone mineral density of 0.717 g/cm2 with aT- score of -1.2. IMPRESSION: Bone mineral density again within normal limits. No statisticallysignificant changes from 03/28/2017. us Nataly NAIR BD BONE DENSITY DEXA Fin al Result * BI MAMMOGRAM SCREENING WITH TOMOSYNTHESIS WITH CAD (BILATERAL) (06/02/2020 10:47 AM EST) Anatomical Region Laterality Modality Breast Left, Breast Right, Breast Bilateral Bila teral Mammography 06/02/2020 1:25 PM EST Impressions 06/02/2020 1:32 PM EST No mammographic signs of malignancy. Annual screening is recommended. BI-RADS CATEGORY: 2 - Benign finding. DENSITY: The breast tissue is heterogeneously dense, which could obscure a lesion on mammography. Narrative 06/02/2020 1:32 PM EST Bilateral mammography is performed in conjunction with computed aided detection. 3-D tomography along with 2-D C view imaging was also performed. Comparison made to previous dated as far back as 04/27/2013 and as recent as 04/05/2019. No suspicious masses, areas of architectural distortion or suspicious microcalcifications. Stable mild vascular calcifications on the right. Procedure Note Johnny Gabriel MD - 06/02/2020 Bilateral mammography is performed in conjunction with computed aideddetection. 3-D tomography along with 2-D C view imaging was alsoperformed. Comparison made to previous dated as far back as 04/27/2013 andas recent as 04/05/2019. No suspicious masses, areas of architectural distortion or suspiciousmicrocalcifications. Stable mild vascular calcifications on the right. IMPRESSION: No mammographic signs of malignancy. Annual screening is recommended. BI-RADS CATEGORY: 2 - Benign finding. DENSITY: The breast tissue is heterogeneously dense, which could obscurea lesion on mammography. Nataly Agustin MD IMG MG EXAMS Final Result documented in this encounter Visit Diagnoses Diagnosis Breast screening Breast screening, unspecified Post-menopausal Asymptomatic postmenopausal status (age-related) (natural) Breast screening Breast screening, unspecified Post-menopausal Asymptomatic postmenopausal status (age-related) (natural) documented in this encounter Care Teams Hem Marker Relationship Specialty Start Date End Date Nataly Agustin MD [email or web address] PCP - General Internal Medicine 03/25/17 12/02/22 Al Reagan MD [address] [place] [address] [email or web address] PCP - General Internal Medicine 12/03/22 12/07/24 Vasu Lam MD [address] [facility] [place] [address] [email or web address] PCP - General Internal Medicine 12/08/24 Lisa Luque FNP [address] [facility] [address] [place] [address] [email or web address] Historical LMR Provider 01/13/17 04/07/21 Nathalie Cook MD [address] [facility] [address] [place] [address] [email or web address] Historical LMR Provider 01/13/17 04/07/21 Yogi Payan MD Historical LMR Provider 01/13/17 04/07/21 Al Reagan MD [address] [place] [address] [email or web address] Insurance Assigned Provider 10/04/23 12/07/24 Leticia Estevez, RN [address] [place], [place] [id number] [email or web address] PHCM Premix Operator Concentrate 12/24/23 01/29/24 Sotero Gray MD [address] [place] [address] [email or web address] Nephrology 12/08/24 David Davalos MD [address] [place] [address] [email or web address] Gastroenterology 12/08/24 Sage Harrington MD [address] [place] [id number] [email or web address] Oncology 12/08/24 Lupe Wade, TELETYPESETTER MONITOR [address] [place] [address] Psychiatry 12/08/24 documented as of this encounter Additional Source Comments The information contained in this document represents components of the legal health record. It is not the complete legal health record.[facility]
--- OUTSIDE RECORDS SUMMARY | 2025-03-22 08:18 | XMS_ITS | Encounter Summary ---
Author Organization [facility] Address [address] [facility] [address] [place] [address] Phone Care Team Providers Care Lead Man Over All Dies In Pattern Shop Name Role Phone Lisa Luque MANAGER PERSONNEL SELECTION Unavailable [phone] Nathalie Cook MD Unavailable [phone] Yogi Payan MD Unavailable [email or web address] Nataly Pratt MD Primary Care Provider Al Reagan MD Primary Care Provider Al Reagan MD Unavailable Leticia Estevez RN Unavailable [phone] Vasu Lam MD Primary Care Provider [phone] Sotero Gray MD Unavailable aDvid Davalos MD Unavailable [phone] Sage Harrington MD Unavailable Lupe Wade ION IMPLANT MACHINE OPERATOR Unavailable [phone] Encounter Details Date Type Department Care Team (Latest Contact Info) Description 04/25/2017 Transcribe Orders [facility] Phleb Radha [address] [place], [place] [id number] David Davalos MD [address] [facility] [address] [place], [place] [id number] [email or web address] Crohn's disease of large intestine with rectal bleeding (Primary Dx) Social History Tobacco Use Types Packs/Day Years Used Date Smoking Tobacco: Never Assessed Comments No Sex and Gender Information Value [...] Description 06/07/2025 10:30 AM EDT Office Visit [facility] [address] [place] [address] Vasu Lam MD [address] [place] [address], [address] [place] [address] [email or web address] documented as of this encounter Results * (ABNORMAL) C-Reactive Protein (04/25/2017 11:21 AM EST) Pathologist [facility] C REACTIVE PROTEIN 1.1(H) 0 - 0.5 mg/L [facility] Blood 04/25/2017 11:2 1 AM EST 04/25/2017 11:25 AM EST David Davalos MD LAB BLOOD BKR ORDERABLES Final Result [facility] [address] [place] [address] * CBC (04/25/2017 11:21 AM EST) Pathologist [facility] WBC 5.87 3.40 - 11.20 K/uL [facility] RBC 4.15 3.80 - 4.80 M/uL [facility] HGB 12.2 12.0 - 15.0 g/dL [facility] HCT 38.7 36.0 - 46.0 % [facility] PLT 289 130 - 400 K/uL [facility] MCV 93.3 79.0 - 98.0 fL [facility] MCH 29.4 27.0 - 34.8 pg [facility] MCHC 31.5 31.5 - 36.0 g/dL [facility] RDW 14.3 10.8 - 14.6 % [facility] MPV 9.8 9.4 - 12.4 fl [facility] NRBC 0.00 /100 WBCs [facility] ABSOLUTE NRBC 0.00 K/uL [facility] Blood 04/25/2017 11:2 1 AM EST 04/25/2017 11:25 AM EST us David Davalos MD LAB BLOOD BKR ORDERABLES Final Result Performing Organization Address City/State/[facility] Co de Phone Number [facility] [address] [place] [address] documented in this encounter Visit Diagnoses Diagnosis Crohn's disease of large intestine with rectal bleeding- Primary documented in this encounter Care Teams Lead Man Over All Dies In Pattern Shop Relationship Specialty Start Date End Date Nataly Agustin MD PCP - General Internal Medicine 03/25/17 12/02/22 Al Reagan MD [address] [place] [address] PCP - General Internal Medicine 12/03/22 12/07/24 Vasu Lam MD [address] [place] [address], [address] [place] [address] PCP - General Internal Medicine 12/08/24 Lisa Luque FNP [address] [place] [address] [address] [place] [address] Historical LMR Provider 01/13/17 04/07/21 Nathalie Cook MD [address] [facility], [address] [place] [address] [email or web address] Historical LMR Provider 01/13/17 04/07/21 Yogi Payan MD [email or web address] Historical LMR Provider 01/13/17 04/07/21 Al Reagan MD [address] [place] [address] [email or web address] Insurance Assigned Provider 10/04/23 12/07/24 Leticia Estevez RN [address] [place] [id number] [email or web address] PHCM Neon Tube Bender 12/24/23 01/29/24 Sotero Gray MD [address] [address] [email or web address] Nephrology 12/08/24 David Davalos MD [address] [place] [address] [email or web address] Gastroenterology 12/08/24 Sage Harrington MD [address] [place] [address] [email or web address] Medical Oncology 12/08/24 Lupe Wade ION IMPLANT MACHINE OPERATOR [address] [place] [address] Psychiatry 12/08/24 documented as of this encounter Additional Source Comments The information contained in this document represents components of the legal health record. It is not the complete legal health record.[facility]
--- OUTSIDE RECORDS SUMMARY | 2025-03-22 08:18 | XMS_ITS | Encounter Summary ---
Author Organization [facility] Address [address] [facility] [address] [place] [address] Phone Care Team Providers Care Electrical Unit Rebuilder Name Role Phone Lisa Luque DIRECTOR COMPENSATION Unavailable [phone] Nathalie Cook MD Unavailable [phone] Yogi Payan MD Unavailable [email or web address] Nataly Pratt MD Primary Care Provider Al Reagan MD Primary Care Provider Al Reagan MD Unavailable Leticia Estevez RN Unavailable [phone] Vasu Lam MD Primary Care Provider [phone] Sotero Gray MD Unavailable David Davalos MD Unavailable [phone] Sage Harrington MD Unavailable Lupe Wade Unavailable [phone] Encounter Details Date Type Department Care Team (Latest Contact Info) Description 08/05/2017 Transcribe Orders [facility] Phleb Radha [address] [id number] Milagros Joe PA 10 [place], [place] [id number] Crohn's disease with complication, unspecified gastrointestinal tract location (Primary Dx) Social History Tobacco Use Types [...] Description 06/07/2025 10:30 AM EDT Office Visit [facility] Primary Care [address] [place] [address] Vasu Lam MD [address] [place] [address], [address] [place] [address] [email or web address] documented as of this encounter Results * (ABNORMAL) Zinc (08/05/2017 2:43 PM EDT) ZINC 0.54(L) 0.66 - 1.10 mcg/mL [facility] Comment: (NOTE) ADDITIONAL INFORMATION This test was developed and its performance characteristics determined by [facility] in a manner consistent with CLIA requirements. This test has not been cleared or approved by the U.S. Food and Drug Administration. Blood 08/05/2017 2:43 PM EDT 08/05/2017 2:51 PM EDT us Milagros WINTER LAB BLOOD ORDERABLES Final Result [facility] [address] [place] [address] * Magnesium (08/05/2017 2:43 PM EDT) Pathologist [facility] MAGNESIUM 2.1 1.6 - 2.6 mg/dL [facility] Blood 08/05/2017 2:43 PM EDT 08/05/2017 2:51 PM EDT Milagros WINTER LAB BLOOD BKR ORDERABLES Fi nal Result [address] [address] * 25-OH vitamin D (08/05/2017 2:43 PM EDT) [facility] 25 OH VIT D (TOTAL) 30 30 - 1,000 ng/mL [facility] Blood 08/05/2017 2:43 PM EDT 08/05/2017 2:51 PM EDT Milagros WINTER LAB BLOOD BKR ORDERABLES Fi nal Result Performing Organization Address [facility] Co de Phone Number [address] [address] * Vitamin B12 (08/05/2017 2:43 PM EDT) [facility] VITAMIN B12 295 232 - 1,245 pg/mL [facility] Comment:The reference range had been changed on July 11, 2017 from 243 - 894pg/mL to 232 - 1245 pg/mL. Blood 08/05/2017 2:43 PM EDT 08/05/2017 2:51 PM EDT Milagros WINTER LAB BLOOD BKR ORDERABLES Fi nal Result Performing Organization Address City/[facility]/ZIP Co de Phone Number [address] [address] * Folate (08/05/2017 2:43 PM EDT) [facility] FOLIC ACID 12.4 4.2 - 19.9 ng/mL [facility] Blood 08/05/2017 2:43 PM EDT 08/05/2017 2:51 PM EDT us Milagros WINTER LAB BLOOD BKR ORDERABLES Fi nal Result Performing Organization Address [facility]/ZIP Co de Phone Number [address] [address] * Ferritin (08/05/2017 2:43 PM EDT) FERRITIN 18 13 - 150 ug/L [facility] Blood 08/05/2017 2:43 PM EDT 08/05/2017 2:51 PM EDT us Milagros WINTER LAB BLOOD BKR ORDERABLES Fi nal Result Performing Organization Address [facility] Co de Phone Number [address] [address] * C-Reactive Protein (08/05/2017 2:43 PM EDT) C REACTIVE PROTEIN 0.5 0 - 0.5 mg/L [facility] Blood 08/05/2017 2:43 PM EDT 08/05/2017 2:51 PM EDT us Milagros WINTER LAB BLOOD BKR ORDERABLES Fi nal Result Performing Organization Address [facility] Co de Phone Number [address] [address] * (ABNORMAL) Comprehensive metabolic panel (08/05/2017 2:43 PM EDT) SODIUM 144 133 - 146 mmol/L [facility] POTASSIUM 4.3 3.3 - 5.1 mmol/L [facility] CHLORIDE 106 96 - 108 mmol/L [facility] CO2 24 21 - 35 mmol/L [facility] BUN 24(H) 6 - 19 mg/dL [facility] CREATININE 0.70 0.5 - 1.5 mg/dL [facility] GLUCOSE 97 70 - 99 mg/dL [facility] ALBUMIN 3.7(L) 3.9 - 4.8 g/dL [facility] TOTAL PROTEIN 7.1 6.5 - 8.0 g/dL [facility] CALCIUM 9.2 8.4 - 10.3 mg/dL [facility] ALKALINE PHOSPHATASE 104 39 - 117 U/L [facility] TOTAL BILIRUBIN <0.2 0.0 - 1.2 mg/dL [facility] AST 19 0 - 37 U/L [facility] ALT 18 0 - 40 U/L [facility] GLOBULIN 3.4 1 - 4.8 g/dL [facility] EGFR 90 >59 mL/min/1.7 3m2 [facility] Comment:If patient is black, multiply result by 1.159. The eGFR calculation has changed from the MDRD equation to the CKD-EPI equation as of June 03, 2017. ANION GAP 18 10 - 20 mmol/L [facility] Blood 08/05/2017 2:43 PM EDT 08/05/2017 2:51 PM EDT us Milagros WINTER LAB BLOOD BKR ORDERABLES Fi nal Result [facility] [address] [place] [address] * CBC (08/05/2017 2:43 PM EDT) WBC 8.18 3.40 - 11.20 K/uL [facility] RBC 4.27 3.80 - 4.80 M/uL [facility] HGB 12.4 12.0 - 15.0 g/dL [facility] HCT 37.8 36.0 - 46.0 % [facility] PLT 313 130 - 400 K/uL [facility] MCV 88.5 79.0 - 98.0 fL [facility] MCH 29.0 27.0 - 34.8 pg [facility] MCHC 32.8 31.5 - 36.0 g/dL [facility] RDW 14.5 10.8 - 14.6 % [facility] MPV 9.7 9.4 - 12.4 fl [facility] NRBC 0.00 /100 WBCs [facility] ABSOLUTE NRBC 0.00 K/uL [facility] Blood 08/05/2017 2:43 PM EDT 08/05/2017 2:51 PM EDT us Milagros WINTER LAB BLOOD BKR ORDERABLES Fi nal Result [facility] [address] [place] [address] documented in this encounter Visit Diagnoses Diagnosis Crohn's disease with complication, unspecified gastrointestinal tract location- Primary documented in this encounter Care Teams Electrical Unit Rebuilder Relationship Specialty Start Date End Date Nataly Agustin MD [email or web address] PCP - General Internal Medicine 03/25/17 12/02/22 Al Reagan MD [address] [place] [address] [email or web address] PCP - General Internal Medicine 12/03/22 12/07/24 Vasu Lam MD [address] [place] [address], [address] [place] [address] [email or web address] PCP - General Internal Medicine 12/08/24 Lisa Luque FNP [address] [facility], [address], [address] [place] [address] [email or web address] Historical LMR Provider 01/13/17 04/07/21 Nathalie Cook MD [address], [address] [place] [address] [email or web address] Historical LMR Provider 01/13/17 04/07/21 Yogi Payan MD [email or web address] Historical LMR Provider 01/13/17 04/07/21 Al Reagan MD [address] [place] [address] [email or web address] Insurance Assigned Provider 10/04/23 12/07/24 Leticia Estevez, RN [address] [place] [address] [email or web address] [facility] Automotive Engineering Teacher 12/24/23 01/29/24 Sotero Gray MD [address] [place] [address] [email or web address] Nephrology 12/08/24 David Davalos MD [address] [place] [address] [email or web address] Gastroenterology 12/08/24 Sage Harrington MD [address] [place] [address] [email or web address] Medical Oncology 12/08/24 Lupe Wade, RECORD CENTER SPECIALIST [address] [place] [address] Psychiatry 12/08/24 documented as of this encounter Additional Source Comments The information contained in this document represents components of the legal health record. It is not the complete legal health record.[facility]
--- OUTSIDE RECORDS SUMMARY | 2025-03-22 08:18 | XMS_ITS | Encounter Summary ---
Author Organization [facility] Address [address] [facility] [address] [place] [address] Phone Care Team Providers Care Rehab Office Coordinator Name Role Phone Lisa Luque FAST FOOD SHIFT LEAD Unavailable Nathalie Cook MD Unavailable Yogi Payan MD Unavailable [email or web address] Nataly Agustin MD Primary Care Provider Al Reagan MD Primary Care Provider Al Reagan MD Unavailable Leticia Estevez RN Unavailable Vasu Lam MD Primary Care Provider [phone] Sotero Gray MD Unavailable David Davalos MD Unavailable [phone] Sage Harrington MD Unavailable Lupe Waed METER MECHANIC Unavailable Encounter Details Date Type Department Care Team (Late st Contact Info) Description 01/28/2018 Ancillary Orders Virtual Department 30 [place] [address] Nataly Agustin MD 25 [place] [address] Breast screening Social History Tobacco Use Types Packs/Day Years [...] Description 06/07/2025 10:30 AM EDT Office Visit [facility] [address] [place] [address] [place] [address] Vasu Lam MD [address] [place] [address], [address] [place] [address] [email or web address] documented as of this encounter Results * BI MAMMOGRAM SCREENING WITH TOMOSYNTHESIS WITH CAD (BILATERAL) (04/03/2018 11:09 AM EST) Anatomical Region Laterality Modality Breast Left, Breast Right, Breast Bilateral Bila teral Mammography 04/03/2018 12:2 3 PM EST Impressions 04/03/2018 12:25 PM EST Stable appearance relative to prior imaging. No findings suggestive of malignancy are seen. BI-RADS CATEGORY: 2 - Benign finding. DENSITY: The breast tissue is heterogeneously dense, an appearance which lowers the sensitivity of mammography. POS - [id number] Narrative 04/03/2018 12:25 PM EST Full-field digital mammography is obtained with computer-aided detection. Comparison with prior imaging from 03/28/2017 is made with older imaging dating back as far as 02/23/2010 also reviewed. There is heterogeneous fibroglandular density evident in the breasts. In addition to 2-D C view imaging, tomosynthesis images are obtained in two projections of each breast. There are minor scattered punctate and vascular calcifications evident.. No dominant soft tissue mass of concern, suspicious cluster of calcifications, significant interval skin changes, or architectural distortion is identified. Procedure Note Grzegorz Lucas MD - 04/03/2018 Full-field digital mammography is obtained with computer-aided detection.Comparison with prior imaging from 03/28/2017 is made with older imagingdating back as far as 02/23/2010 also reviewed. There is heterogeneous fibroglandular density evident in the breasts. Inaddition to 2-D C view imaging, tomosynthesis images are obtained in twoprojections of each breast. There are minor scattered punctate and vascular calcifications evident..No dominant soft tissue mass of concern, suspicious cluster ofcalcifications, significant interval skin changes, or architecturaldistortion is identified. IMPRESSION: Stable appearance relative to prior imaging. No findings suggestive ofmalignancy are seen. BI-RADS CATEGORY: 2 - Benign finding. DENSITY: The breast tissue is heterogeneously dense, an appearance whichlowers the sensitivity of mammography. POS - [id number] Nataly Agustin MD IMG MG EXAMS Final Result documented in this encounter Visit Diagnoses Diagnosis Breast screening Breast screening, unspecified Breast screening Breast screening, unspecified documented in this encounter Care Teams Rehab Office Coordinator Relationship Specialty Start Date End Date Nataly Agustin MD PCP - General Internal Medicine 03/25/17 12/02/22 Al Reagan MD [address] [place] [address] PCP - General Internal Medicine 12/03/22 12/07/24 Vasu Lam MD [address] [place] [address], [address] [place] [address] PCP - General Internal Medicine 12/08/24 Lisa Luque FNP [address] [facility] [address], [address] [place] [address] [email or web address] Historical LMR Provider 01/13/17 04/07/21 Nathalie Cook MD [address] [facility] [address], [address] [place] [address] [email or web address] Historical LMR Provider 01/13/17 04/07/21 Yogi Payan MD [email or web address] Historical LMR Provider 01/13/17 04/07/21 Al Reagan MD 40 [place] [address] [email or web address] Insurance Assigned Provider 10/04/23 12/07/24 Leticia Estevez, RN [address] [place] [address] [email or web address] Gray Cloth Tender 12/24/23 01/29/24 Sotero Gray MD [address] [place] [address] [email or web address] Nephrology 12/08/24 David Daavlos MD [address] [place] [address] [email or web address] Gastroenterology 12/08/24 Sage Harrington MD [address] [place] [address] [email or web address] Medical Oncology 12/08/24 Lupe Wade, METER MECHANIC [address] [place] [address] Psychiatry 12/08/24 documented as of this encounter Additional Source Comments The information contained in this document represents components of the legal health record. It is not the complete legal health record.[facility]
--- OUTSIDE RECORDS SUMMARY | 2025-03-22 08:18 | XMS_ITS | Encounter Summary ---
Author Organization [facility] Address [address] [facility] [address] [place] [address] Phone Care Team Providers Care Chief Projectionist Name Role Phone Lisa Luque TECHNOLOGIES DIVISION CHAIR Unavailable [phone] Nathalie Cook MD Unavailable oYgi Payan MD Unavailable [email or web address] Nataly Pratt MD Primary Care Provider Al Reagan MD Primary Care Provider Al Reagan MD Unavailable Leticia Estevez RN Unavailable [phone] Vasu Lam MD Primary Care Provider [phone] Sotero Gray MD Unavailable David Davalos MD Unavailable [phone] Sage Harrington MD Unavailable Lupe Wade Unavailable Encounter Details Date Type Department Care Team (Late st Contact Info) Description 02/29/2020 Procedure Pass [facility], [address] [id number] Social History Tobacco Use Types Packs/Day Years [...] Description 06/07/2025 10:30 AM EDT Office Visit [facility] [address] [place] [address] Vasu Lam MD [address] [place] [address], [address] [place] [address] documented as of this encounter Visit Diagnoses Not on filedocumented in this encounter Care Teams Chief Projectionist Relationship Specialty Start Date End Date Nataly Agustin MD PCP - General Internal Medicine 03/25/17 12/02/22 Al Reagan MD [address] [place] [address] PCP - General Internal Medicine 12/03/22 12/07/24 Vasu Lam MD [address] [place] [address], [address] [place] [address] PCP - General Internal Medicine 12/08/24 Lisa Luque FNP [address] [place] [address] [address], [address] [place] [address] Historical LMR Provider 01/13/17 04/07/21 Nathalie Cook MD [address] [facility], [address] [place] [address] [email or web address] Historical LMR Provider 01/13/17 04/07/21 Yogi Payan MD [email or web address] Historical LMR Provider 01/13/17 04/07/21 Al Reagan MD 40 [place] [address] [email or web address] Insurance Assigned Provider 10/04/23 12/07/24 Leticia Estevez, ALISSA 10 [place] [address] [email or web address] PHC Heel Seat Flap Stapler 12/24/23 01/29/24 Sotero Gray MD [address] [address] [email or web address] Nephrology 12/08/24 David Davalos MD [address] [place] [address] [email or web address] Gastroenterology 12/08/24 Sage Harrington MD [address] [place] [address] [email or web address] Medical Oncology 12/08/24 Lupe Wade, INSURANCE SALESPERSON [address] [place] [address] Psychiatry 12/08/24 documented as of this encounter Additional Source Comments The information contained in this document represents components of the legal health record. It is not the complete legal health record.[facility]
--- OUTSIDE RECORDS SUMMARY | 2025-03-22 08:18 | XMS_ITS | Encounter Summary ---
Author Organization [facility] Address [address] [facility] [address] [place] [address] Phone Care Team Providers Care Telephone Station Installer Name Role Phone Lisa Luque POULTRY SCIENTIST Unavailable [phone] Nathalie Cook MD Unavailable [phone] Yogi Payan MD Unavailable [email or web address] Nataly Pratt MD Primary Care Provider Al Reagan MD Primary Care Provider [phone] Al Reagan MD Unavailable Leticia Estevez RN Unavailable [phone] Vasu Lam MD Primary Care Provider [phone] Sotero Gray MD Unavailable David Davalos MD Unavailable [phone] Sage Harrington MD Unavailable Lupe Wade SALES FLOOR MANAGER Unavailable [phone] Encounter Details Date Type Department Care Team (Latest Contact Info) Description 01/16/2021 Transcribe Orders [facility] Phleb Radha [address] Floor [place], [place] [id number] David Davalos MD [address] . [facility] 2 [place], [place] [id number] [email or web address] Crohn's disease of colon with complication (Primary Dx) Social History Tobacco Use Types [...] Description 06/07/2025 10:30 AM EDT Office Visit [facility] Primary Care [address] [place] [address] Vasu Lam MD [address] [place] [address], [address] [place] [address] [email or web address] documented as of this encounter Results * Zinc (01/16/2021 12:16 PM EDT) ZINC 0.98 0.66 - 1.10 mcg/mL [facility] Comment: (NOTE) ADDITIONAL INFORMATION This test was developed and its performance characteristics determined by [facility] in a manner consistent with CLIA requirements. This test has not been cleared or approved by the U.S. Food and Drug Administration. Blood 01/16/2021 12:1 6 PM EDT 01/16/2021 12:22 PM EDT us David Davalos MD LAB BLOOD ORDERABLES Final Res ult [facility] [address] [place] [address] * Vitamin B12 (01/16/2021 12:16 PM EDT) Pathologist [facility] VITAMIN B12 1,105 232 - 1,245 pg/mL [facility] Blood 01/16/2021 12:1 6 PM EDT 01/16/2021 12:22 PM EDT us David Davalos MD LAB BLOOD BKR ORDERABLES Final Result Performing Organization Address City/[facility]/ZIP Co de Phone Number [address] [address] * 25-OH vitamin D (01/16/2021 12:16 PM EDT) Pathologist [facility] 25 [place] VIT D (TOTAL) 36 30 - 60 ng/mL [facility] Blood 01/16/2021 12:1 6 PM EDT 01/16/2021 12:22 PM EDT us David Davalos MD LAB BLOOD BKR ORDERABLES Final Result Performing Organization Address City/[facility]/ZIP Co de Phone Number [address] [address] * (ABNORMAL) Comprehensive metabolic panel (01/16/2021 12:16 PM EDT) Pathologist [facility] SODIUM 136 133 - 146 mmol/L [facility] POTASSIUM 4.7 3.3 - 5.1 mmol/L [facility] CHLORIDE 103 96 - 108 mmol/L [facility] CO2 22 21 - 35 mmol/L [facility] BUN 26(H) 6 - 19 mg/dL [facility] CREATININE 1.00 0.5 - 1.5 mg/dL [facility] GLUCOSE 102(H) 70 - 99 mg/dL [facility] ALBUMIN 4.4 3.9 - 4.8 g/dL [facility] TOTAL PROTEIN 7.5 6.5 - 8.0 g/dL [facility] CALCIUM 9.5 8.4 - 10.3 mg/dL [facility] ALKALINE PHOSPHATASE 104 39 - 117 U/L [facility] TOTAL BILIRUBIN 0.2 0.0 - 1.2 mg/dL [facility] AST 25 0 - 37 U/L [facility] ALT 18 0 - 40 U/L [facility] GLOBULIN 3.1 1 - 4.8 g/dL [facility] EGFR 57(L) >59 mL/min/1.7 3m2 [facility] Comment:Estimated glomerular filtration rate calculated using the CKD-EPI equation. ANION GAP 16 10 - 20 mmol/L [facility] Blood 01/16/2021 12:1 6 PM EDT 01/16/2021 12:22 PM EDT us David Davalos MD LAB BLOOD BKR ORDERABLES Final Result Performing Organization Address City/State/[facility] Co de Phone Number [address] [address] * (ABNORMAL) CBC (01/16/2021 12:16 PM EDT) WBC 4.23 4.00 - 11.00 K/uL [facility] RBC 4.17 3.72 - 5.30 M/uL [facility] HGB 13.3 11.4 - 15.9 g/dL [facility] HCT 40.5 34.2 - 46.8 % [facility] PLT 221 140 - 430 K/uL [facility] MCV 97.1(H) 78.0 - 97.0 fL [facility] MCH 31.9 25.0 - 33.0 pg [facility] MCHC 32.8 32.0 - 36.0 g/dL [facility] RDW 13.3 11.0 - 16.0 % [facility] MPV 10.0 8.4 - 12.8 fl [facility] NRBC 0.00 0 /100 WBCs [facility] ABSOLUTE NRBC 0.00 0 K/uL [facility] Blood 01/16/2021 12:1 6 PM EDT 01/16/2021 12:22 PM EDT us David Davalos MD LAB BLOOD BKR ORDERABLES Final Result [facility] [address] [place] [address] documented in this encounter Visit Diagnoses Diagnosis Crohn's disease of colon with complication- Primary documented in this encounter Care Teams Telephone Station Installer Relationship Specialty Start Date End Date Nataly Agustin MD PCP - General Internal Medicine 03/25/17 12/02/22 Al Reagan MD 40 [place] [address] PCP - General Internal Medicine 12/03/22 12/07/24 Vasu Lam MD [address] [place] [address], [address] [place] [address] PCP - General Internal Medicine 12/08/24 Lisa Luque FNP [address] [facility], [address] [place] [address] Historical LMR Provider 01/13/17 04/07/21 Nathalie Cook MD [address] [facility] [address], [address] [place] [address] Historical LMR Provider 01/13/17 04/07/21 Yogi Payan MD Historical LMR Provider 01/13/17 04/07/21 Al Reagan MD 40 [place] [address] Insurance Assigned Provider 10/04/23 12/07/24 Leticia Estevez, RN 10 [place] [address] [email or web address] Spice Cleaner 12/24/23 01/29/24 Sotero Gray MD [address] [address] [email or web address] Nephrology 12/08/24 David Davalos MD [address] [place] [address] [email or web address] Gastroenterology 12/08/24 Sage Harrington MD [address] [place] [address] [email or web address] Medical Oncology 12/08/24 Lupe Wade, SALES FLOOR MANAGER [address] [place] [address] Psychiatry 12/08/24 documented as of this encounter Additional Source Comments The information contained in this document represents components of the legal health record. It is not the complete legal health record.[facility]
--- OUTSIDE RECORDS SUMMARY | 2025-03-22 08:18 | XMS_ITS | Encounter Summary ---
Author Organization [facility] Address [address] [facility] [address] [place] [address] Phone Care Team Providers Care Civil Estimator Name Role Phone Lisa Luque SAS SQL DEVELOPER Unavailable [phone] Nathalie Cook MD Unavailable [phone] Yogi Payan MD Unavailable [email or web address] Nataly Pratt MD Primary Care Provider Al Reagan MD Primary Care Provider Al Reagan MD Unavailable Leticia Estevez RN Unavailable [phone] Vasu Lam MD Primary Care Provider [phone] Sotero Gray MD Unavailable David Davalos MD Unavailable [phone] Sage Harrington MD Unavailable Lupe Wade BUSINESS SERVICES SPECIALIST SALES Unavailable Encounter Details Date Type Department Care Team (Late st Contact Info) Description 06/06/2017 Procedure Pass [facility], Ct Scan - [address] [address] Social History Tobacco Use Types Packs/Day Years [...] Description 06/07/2025 10:30 AM EDT Office Visit [facility] [address] [place] [address] Vasu Lam MD [address] [place] [address], [address] [place] [address] documented as of this encounter Visit Diagnoses Not on filedocumented in this encounter Care Teams Civil Estimator Relationship Specialty Start Date End Date Nataly Agustin MD PCP - General Internal Medicine 03/25/17 12/02/22 Al Reagan MD [address] [place] [address] PCP - General Internal Medicine 12/03/22 12/07/24 Vasu Lam MD [address] [place] [address], [address] [place] [address] PCP - General Internal Medicine 12/08/24 Lisa Luque FNP [address] [place] [address] 204, [address] [place] [address] Historical LMR Provider 01/13/17 04/07/21 Nathalie Cook MD [address] [facility]. 204, [address] [place] [address] [email or web address] Historical LMR Provider 01/13/17 04/07/21 Yogi Payan MD [email or web address] Historical LMR Provider 01/13/17 04/07/21 Al Reagan MD 40 [place] [address] [email or web address] Insurance Assigned Provider 10/04/23 12/07/24 Leticia Estevez, ALISSA 10 [place] [address] [email or web address] PHCM Telesales Supervisor 12/24/23 01/29/24 Sotero Gray MD [address] [address] [email or web address] Nephrology 12/08/24 David Davalos MD [address] [place] [address] [email or web address] Gastroenterology 12/08/24 Sage Harrington MD [address] [place] [address] [email or web address] Medical Oncology 12/08/24 Lupe Wade, BUSINESS SERVICES SPECIALIST SALES [address] [place] [address] Psychiatry 12/08/24 documented as of this encounter Additional Source Comments The information contained in this document represents components of the legal health record. It is not the complete legal health record.[facility]
--- OUTSIDE RECORDS SUMMARY | 2025-03-22 08:18 | XMS_ITS | Encounter Summary ---
Author Organization [facility] Address [address] [facility] [address] [place] [address] Phone Care Team Providers Care Association Executive Name Role Phone Nataly Agustin MD Primary Care Provider [phone] Al Reagan MD Primary Care Provider Al Reagan MD Unavailable Leticia Estevez RN Unavailable Vasu Lam MD Primary Care Provider [phone] Sotero Gray MD Unavailable David Davalos MD Unavailable [phone] Sage Harrington MD Unavailable Lupe Wade [facility] Unavailable [phone] Encounter Details Date Type Department Care Team (Late st Contact Info) Description 02/07/2022 Procedure Pass [facility] 30 [place], [place] [id number] Social History Tobacco Use Types Packs/Day Years [...] Description 06/07/2025 10:30 AM EDT Office Visit [facility] Primary Care [address] [address] Vasu Lam MD [address] [place] [address], [address] [place] [address] documented as of this encounter Visit Diagnoses Not on filedocumented in this encounter Additional Health Concerns Assessment Noted Time PHQ-2 Depression Total Score: 0 02/08/20 10:11 AM EST documented as of this encounter Care Teams Association Executive Relationship Specialty Start Date End Date Nataly Agustin MD PCP - General Internal Medicine 03/25/17 12/02/22 Al Reagan MD 40 [place] [address] PCP - General Internal Medicine 12/03/22 12/07/24 Vasu Lam MD [address] [place] [address], [address] [place] [address] PCP - General Internal Medicine 12/08/24 Al Reagan MD 40 [place] [address] Insurance Assigned Provider 10/04/23 12/07/24 Leticia Estevez, ALISSA [address] [place] [address] [id number] PHC Digital Tech 12/24/23 01/29/24 Sotero Gray MD [address] [address] [email or web address] Nephrology 12/08/24 David Davalos MD [address] [address] [email or web address] Gastroenterology 12/08/24 Sage Harrington MD [address] [place] [address] [email or web address] Medical Oncology 12/08/24 Lupe Wade, SENIOR APPLICATIONS ENGINEER [address] [place] [address] Psychiatry 12/08/24 documented as of this encounter Additional Source Comments The information contained in this document represents components of the legal health record. It is not the complete legal health record.[facility]
--- OUTSIDE RECORDS SUMMARY | 2025-03-22 08:18 | XMS_ITS | Encounter Summary ---
Author Organization [facility] Address [address] [facility] [address] [place] [address] Phone Care Team Providers Care Facility Administrator Name Role Phone Lisa Luque CHIEF II DISPATCHER Unavailable [phone] Nathalie Cook MD Unavailable [phone] Yogi Payan MD Unavailable [email or web address] Nataly Pratt MD Primary Care Provider Al Reagan MD Primary Care Provider Al Reagan MD Unavailable Leticia Estevez RN Unavailable [phone] Vasu Lam MD Primary Care Provider [phone] Sotero Gray MD Unavailable David Davalos MD Unavailable [phone] Sage Harrington MD Unavailable Lupe Wade CONTRACT ATTORNEY Unavailable [phone] Encounter Details Date Type Department Care Team (Latest Contact Info) Description 11/22/2019 Transcribe Orders Virtual Department 30 [place] [address] David Davalos MD [address] [phone] Pre-operative laboratory examination (Primary Dx) Social History Tobacco Use Types [...] Description 06/07/2025 10:30 AM EDT Office Visit [facility] Primary Care [address] [address] Vasu Lam MD [address] [place] [address], [address] [place] [address] [email or web address] documented as of this encounter Results * COVID-19 PCR Order (11/26/2019 9:59 AM EDT) Specimen Source NASOPHARYNGEAL SWAB (CARBON PAPER COATING MACHINE SETTER) [facility] COVID-19 Comment [id number] [facility] COVID Testing Status Sent to [facility] Micro Lab [facility] Other 11/26/2019 9:59 AM EDT 11/26/2019 11:08 AM EDT us David Davalos MD LAB GENERAL ORDERABLES Final R esult [facility] 30 [place] [address] documented in this encounter Visit Diagnoses Diagnosis Pre-operative laboratory examination- Primary Pre-procedural laboratory examination documented in this encounter Care Teams Facility Administrator Relationship Specialty Start Date End Date Nataly Agustin MD PCP - General Internal Medicine 12/26/17 9/4/23 Al Reagan MD 40 [place] [address] PCP - General Internal Medicine 12/03/22 12/07/24 Vasu Lam MD 22 [facility], [address] [place] [address] PCP - General Internal Medicine 12/08/24 Lisa Luque FNP [address] [facility]. 204, [address] [place] [address] [email or web address] Historical LMR Provider 01/13/17 04/07/21 Nathalie Cook MD 38 [facility]. 204, [address] [place] [address] [email or web address] Historical LMR Provider 01/13/17 04/07/21 Yogi Payan MD Historical LMR Provider 01/13/17 04/07/21 Al Reagan MD 40 [place] [address] [email or web address] Insurance Assigned Provider 10/04/23 12/07/24 Leticia Estevez, RN 10 [place], [place] [phone] [email or web address] PHCM Damascener 12/24/23 01/29/24 Sotero Gray MD 15 [facility] [address] [place] [address] [email or web address] Nephrology 12/08/24 David Davalos MD [address] [place] [address] [email or web address] Gastroenterology 12/08/24 Sage Harrington MD [address] [place] [address] [email or web address] Medical Oncology 12/08/24 Lupe Wade, CONTRACT ATTORNEY [address] [place] [address] Psychiatry 12/08/24 documented as of this encounter Additional Source Comments The information contained in this document represents components of the legal health record. It is not the complete legal health record.[facility]
--- OUTSIDE RECORDS SUMMARY | 2025-03-22 08:18 | XMS_ITS | Encounter Summary ---
Author Organization [facility] Address [address] [facility] [address] [place] [address] Phone Care Team Providers Care Rn Infusion Name Role Phone Lisa Luque AVIATION BOATSWAIN'S MATE Unavailable [phone] Nathalie Cook MD Unavailable Yogi Payan MD Unavailable [email or web address] Nataly Pratt MD Primary Care Provider Al Reagan MD Primary Care Provider Al Reagan MD Unavailable Leticia Estevez RN Unavailable [phone] Vasu Lam MD Primary Care Provider [phone] Sotero Gray MD Unavailable David Davalos MD Unavailable [phone] Sage Harrington MD Unavailable Lupe Wade CUSTOM STUDIO COORDINATOR Unavailable Encounter Details Date Type Department Care Team (Latest Contact Info) Description 03/05/2018 Transcribe Orders [facility] [place] [address] [place], [place] [phone] David Davalos MD [address] [place] [address] [email or web address] Diarrhea, unspecified type (Primary Dx) Social History Tobacco Use Types [...] Description 06/07/2025 10:30 AM EDT Office Visit [facility] Primary [facility] [address] [address] Vasu Lam MD [address] [place] [address], [address] [place] [address] [email or web address] documented as of this encounter Results * (ABNORMAL) Calprotectin, stool (03/05/2018 11:11 AM EST) Calprotectin, stool >3000.0( H) <50.0 mcg/g [facility] Calprotectin Interp Positive (A) Negative [facility] Stool (Stool) 03/05/2018 11: 11 AM EST 03/05/2018 11:12 AM EST us David Davalos MD LAB BODY FLUIDS AND STOOL SIOBHAN ARAYA Final Result [facility] [address] [place] [address] documented in this encounter Visit Diagnoses Diagnosis Diarrhea, unspecified type- Primary documented in this encounter Care Teams Rn Infusion Relationship Specialty Start Date End Date Nataly Agustin MD [email or web address] PCP - General Internal Medicine 03/25/17 12/02/22 Al Reagan MD 40 [place] [address] PCP - General Internal Medicine 12/03/22 12/07/24 Vasu Lam MD 22 [facility], [address] [place] [address] PCP - General Internal Medicine 12/08/24 Lisa Luque FNP [address] [facility]. 204, [address] [place] [address] [email or web address] Historical LMR Provider 01/13/17 04/07/21 Nathalie Cook MD 38 [facility]. 204, [address] [place] [address] Historical LMR Provider 01/13/17 04/07/21 Yogi Payan MD Historical LMR Provider 01/13/17 04/07/21 Al Reagan MD 40 [place] [address] Insurance Assigned Provider 10/04/23 12/07/24 Leticia Estevez, RN 10 [place], [place] [phone] PHCM Red Mud Thickener Operator 12/24/23 01/29/24 Sotero Gray MD [address] [facility] [address] [place], [place] [phone] [email or web address] Nephrology 12/08/24 David Davalos MD [address] [place] [address] [email or web address] Gastroenterology 12/08/24 Sage Harrington MD [address] [place] [address] [email or web address] Medical Oncology 12/08/24 Lupe Wade CNS [address] [place] [address] Psychiatry 12/08/24 documented as of this encounter Additional Source Comments The information contained in this document represents components of the legal health record. It is not the complete legal health record.[facility]
--- OUTSIDE RECORDS SUMMARY | 2025-03-22 08:18 | XMS_ITS | Encounter Summary ---
Author Organization [facility] Address [address] [facility] [address] [place] [address] Phone Care Team Providers Care Property Master Name Role Phone Nataly Agustin MD Primary Care Provider [phone] Al Reagan MD Primary Care Provider [phone] Al Reagan MD Unavailable Leticia Estevez RN Unavailable Vasu Lam MD Primary Care Provider [phone] Sotero Gray MD Unavailable David Davalos MD Unavailable [phone] Sage Harrington MD Unavailable Lupe Wade [facility] Unavailable Encounter Details Date Type Department Care Team (Late st Contact Info) Description 07/23/2021 Procedure Pass [facility], [address] [phone] Social History Tobacco Use Types Packs/Day Years [...] Description 06/07/2025 10:30 AM EDT Office Visit [facility] Primary Care [address] [place] [address] Vasu Lam MD [address] [place] [address], [address] [place] [address] documented as of this encounter Visit Diagnoses Not on filedocumented in this encounter Care Teams Property Master Relationship Specialty Start Date End Date Nataly Agustin MD PCP - General Internal Medicine 03/25/17 12/02/22 Al Reagan MD 40 [place] [address] PCP - General Internal Medicine 12/03/22 12/07/24 Vasu Lam MD [address] [place] [address], [address] [place] [address] PCP - General Internal Medicine 12/08/24 Al Reagan MD 40 [place] [address] Insurance Assigned Provider 10/04/23 12/07/24 Leticia Estevez, RN [address] [place] [address] PHCM Insulation Applicator 12/24/23 01/29/24 Sotero Gray MD 15 [facility] [address] [place] [address] [email or web address] Nephrology 12/08/24 David Davalos MD [address] [place] [address] [email or web address] Gastroenterology 12/08/24 Sage Harrington MD [address] [place] [address] [email or web address] Medical Oncology 12/08/24 Lupe Wade, TONGUE TRIMMER [address] [place] [address] Psychiatry 12/08/24 documented as of this encounter Additional Source Comments The information contained in this document represents components of the legal health record. It is not the complete legal health record.[facility]
--- OUTSIDE RECORDS SUMMARY | 2025-03-22 08:19 | XMS_ITS | Encounter Summary ---
Author Organization [facility] [place], Address [address] [place] [address] Phone Care Team Providers Care Preforms Laminator Name Role Phone Al Reagan MD Primary Care Provider [phone] Encounter Details Date Type Department Care Team (Late st Contact Info) Description 06/18/2024 Orders Only [facility] [address] [place] [address] Sotero Gray MD [address] [place] [address] [place] [address] Stage 3b chronic kidney disease (HCC); Benign essential hypertension Social History Tobacco Use Types Packs/Day Years Used Date Smoking Tobacco: Never Smokeless Tobacco: Never Comments Unknown Sex and Gender Information Value Date Recorded Sex Assigned at Not on file Legal Sex Female 5:17 PM EST Gender Identity Not on file Sexual Orientation Not on file documented as of this encounter Plan of Treatment Upcoming Encounters Date Type Department Care Team (Late st Contact Info) Description 04/21/2025 11:00 AM EST Office Visit [facility] [address] [place] [phone] Sotero Gray MD [address] [facility] [place] [address] documented as of this encounter Procedures Procedure Name Priority Date/Time Associated Diagnosis Comments RENAL FUNCTION PANEL Routine 07/01/2024 1:20 PM EDT Stage 3b chronic kidney disease (HCC) Benign essential hypertension documented in this encounter Results * (ABNORMAL) Renal Function Panel (07/01/2024 1:20 PM EDT) Glucose 90 70 - 99 mg/dL [facility] BUN 35(H) 8 - 27 mg/dL [facility] Creatinine 1.51(H) 0.57 - 1.00 mg/dL [facility] eGFR CKD-EPI CR 2020 36(L) >59 mL/min/1.7 3 [facility] BUN/Creatinine Ratio 23 12 - 28 [facility] Sodium 140 134 - 144 mmol/L [facility] Potassium 4.7 3.5 - 5.2 mmol/L [facility] Chloride 105 96 - 106 mmol/L [facility] Bicarbonate (CO2) 20 20 - 29 mmol/L [facility] Calcium 9.3 8.7 - 10.3 mg/dL [facility] Albumin 4.1 3.8 - 4.8 g/dL [facility] Phosphorus 3.8 3.0 - 4.3 mg/dL [facility] Blood specimen (specimen) Venous blood / Unknown 07/01/2024 1:20 PM EDT 07/01/2024 us Sotero Gray MD LAB BLOOD ORDERABLES Final Resul t [facility] [address] [place] [phone] documented in this encounter Visit Diagnoses Diagnosis Stage 3b chronic kidney disease (HCC) Benign essential hypertension documented in this encounter Care Teams Preforms Laminator Relationship Specialty Start Date End Date Al Reagan MD 40 [place] [address] PCP - General Internal Medicine 05/20/24 documented as of this encounter
--- OUTSIDE RECORDS SUMMARY | 2025-03-22 08:19 | XMS_ITS | Encounter Summary ---
Author Organization [facility] [place], Address [address] [place] [address] Phone Care Team Providers Care Recycler Forklift Driver Truck Driver Name Role Phone Al Reagan MD Primary Care Provider [phone] Encounter Details Date Type Department Care Team (Late st Contact Info) Description 05/31/2024 Documentation Only [facility] [address] [place] [address] Leslie [place] [address] [place] [address] Social History Tobacco Use Types Packs/Day Years [...] Visit [facility] [address] [place] [phone] Sotero Gray MD [address] [place] [address] [place] [phone] documented as of this encounter Visit Diagnoses Not on filedocumented in this encounter Care Teams Recycler Forklift Driver Truck Driver Relationship Specialty Start Date End Date Al Reagan MD 40 [place] [address] PCP - General Internal Medicine 05/20/24 documented as of this encounter
--- OUTSIDE RECORDS SUMMARY | 2025-03-22 08:19 | XMS_ITS | Encounter Summary ---
Author Organization [facility] Address [address] [facility] [address] [place] [address] Phone Care Team Providers Care Director Of Development And Marketing Name Role Phone Al Reagan MD Primary Care Provider [phone] Al Reagan MD Unavailable Vasu Lam MD Primary Care Provider [phone] Sotero Gray MD Unavailable David Davalos MD Unavailable [phone] Sage Harrington MD Unavailable Lupe Wade [facility] Unavailable [phone] Encounter Details Date Type Department Care Team (Late st Contact Info) Description 08/18/2024 Telephone [facility] Primary [facility] Clinic [address] [place], [place] [phone] Al Reagan MD 40 [place] [address] Social History Tobacco Use Types Packs/Day Years Used Date Smoking Tobacco: Never Passive Smoke Exposure: Past Smokeless Tobacco: Never Alcohol Use Standard Drinks/Week Comments Yes 0 (1 standard drink = 0.6 oz [...] 10:30 AM EDT Office Visit [facility] [address] [place] [address] [place] [address] Vasu Lam MD [address] [place] [address], [address] [place] [address] [email or web address] documented as of this encounter Visit Diagnoses Not on filedocumented in this encounter Additional Health Concerns Assessment Noted Time PHQ-2 Depression Total Score: 0 05/09/19 25 5:44 PM EST documented as of this encounter Care Teams Director Of Development And Marketing Relationship Specialty Start Date End Date Al Reagan MD 40 [place] [address] [email or web address] PCP - General Internal Medicine 12/03/22 12/07/24 Vasu Lam MD 22 [facility], [address] [place] [address] [email or web address] PCP - General Internal Medicine 12/08/24 Al Reagan MD 40 [place] [address] [email or web address] Insurance Assigned Provider 10/04/23 12/07/24 Sotero Gray MD 15 [facility] [address] [place] [address] [email or web address] Nephrology 12/08/24 David Davalos MD [address] [address] [email or web address] Gastroenterology 12/08/24 Sage Harrington MD [address] [place] [address] [email or web address] Medical Oncology 12/08/24 Lupe Wade, LOGGING ENGINEER [address] [place] [address] Psychiatry 12/08/24 documented as of this encounter Additional Source Comments The information contained in this document represents components of the legal health record. It is not the complete legal health record.[facility]
--- OUTSIDE RECORDS SUMMARY | 2025-03-22 08:19 | XMS_ITS | Encounter Summary ---
Author Organization [facility] [place], Address [address] [place] [address] Phone Care Team Providers Care Physical Security Manager Name Role Phone Al Reagan MD Primary Care Provider [phone] Encounter Details Date Type Department Care Team (Late st Contact Info) Description 08/27/2024 Orders Only [facility] [address] [place] [address] Sotero Gray MD [address] [place] [address] [place] [address] Stage 3b chronic kidney disease [...] Visit [facility] [address] [place] [phone] Sotero Gray MD [address] [facility] [place] [address] documented as of this encounter Visit Diagnoses Diagnosis Stage 3b chronic kidney disease (HCC) Benign essential hypertension documented in this encounter Care Teams Physical Security Manager Relationship Specialty Start Date End Date Al Reagan MD [address] [place] [address] PCP - General Internal Medicine 05/20/24 documented as of this encounter
--- OUTSIDE RECORDS SUMMARY | 2025-03-22 08:19 | XMS_ITS | Encounter Summary ---
Author Organization [facility], Address [address] [place] [address] Phone Care Team Providers Care Informatics Physician Name Role Phone Al Reagan MD Primary Care Provider [phone] Encounter Details Date Type Department Care Team (Late st Contact Info) Description 05/31/2024 Documentation Only [facility] [address] [place] [address] Leslie Matute [address] [place] [address] Social History Tobacco Use Types [...] Visit [facility] Marvin MAIN [address] [place] [phone] Sotero Gray MD [address] [place] [address] [place] [phone] documented as of this encounter Visit Diagnoses Not on filedocumented in this encounter Care Teams Informatics Physician Relationship Specialty Start Date End Date Al Reagan MD [address] [place] [address] PCP - General Internal Medicine 05/20/24 documented as of this encounter
--- OUTSIDE RECORDS SUMMARY | 2025-03-22 08:19 | XMS_ITS | Encounter Summary ---
Author Organization [facility] [place], Address [address] [place] [address] Phone Care Team Providers Care Track Manager Name Role Phone Al Reagan MD Primary Care Provider [phone] Encounter Details Date Type Department Care Team (Late st Contact Info) Description 07/02/2024 Orders Only [facility] [address]aye [address] [place] [address] Sotero Gray MD [address] [place] [address] [place] [address] Stage 3b chronic kidney disease [...] Visit [facility] [address]aye [address] [place] [phone] Sotero Gray MD [address] [facility] [place] [address] documented as of this encounter Procedures Procedure Name Priority Date/Time Associated Diagnosis Comments RENAL FUNCTION PANEL Routine 07/29/2024 8:59 AM EDT Stage 3b chronic kidney disease (HCC) Benign essential hypertension documented in this encounter Results * (ABNORMAL) Renal Function Panel (07/29/2024 8:59 AM EDT) Glucose 100(H) 70 - 99 mg/dL [facility] BUN 31(H) 8 - 27 mg/dL [facility] Creatinine 1.95(H) 0.57 - 1.00 mg/dL [facility] eGFR CKD-EPI CR 2020 27(L) >59 mL/min/1.7 3 [facility] BUN/Creatinine Ratio 16 12 - 28 [facility] Sodium 141 134 - 144 mmol/L [facility] Potassium 5.4(H) 3.5 - 5.2 mmol/L [facility] Chloride 104 96 - 106 mmol/L [facility] Bicarbonate (CO2) 18(L) 20 - 29 mmol/L [facility] Calcium 10.2 8.7 - 10.3 mg/dL [facility] Albumin 4.3 3.8 - 4.8 g/dL [facility] Phosphorus 3.9 3.0 - 4.3 mg/dL [facility] Blood specimen (specimen) Venous blood / Unknown 07/29/2024 8:59 AM EDT 07/29/2024 us Sotero Gray MD LAB BLOOD ORDERABLES Final Resul t [facility] [address] [place] [address] documented in this encounter Visit Diagnoses Diagnosis Stage 3b chronic kidney disease (HCC) Benign essential hypertension documented in this encounter Care Teams Track Manager Relationship Specialty Start Date End Date Al Reagan MD [address] [place] [address] PCP - General Internal Medicine 05/20/24 documented as of this encounter
--- OUTSIDE RECORDS SUMMARY | 2025-03-22 08:19 | XMS_ITS | Encounter Summary ---
Author Organization [facility] Address [address] [place] [address] Phone Care Team Providers Care Parks And Recreation Worker Name Role Phone Lisa Luque IMMIGRATION CASE MANAGER Unavailable [phone] Nathalie Cook MD Unavailable [phone] Yogi Payan MD Unavailable [email or web address] MD Primary Care Provider Al Reagan MD Primary Care Provider [phone] Al Reagan MD Unavailable Leticia Estevez RN Unavailable [phone] Vasu Lam MD Primary Care Provider [phone] Sotero Gray MD Unavailable Ed Davalos MD Unavailable [phone] Sage Harrington MD Unavailable Lupe Wade BIT GATHERER Unavailable [phone] Reason for Referral * MRI/CAT Scan - Closed Specialty Diagnoses / Procedures Referred By Arnaldo alfaro Referred To Contact Radiology Diagnoses Other microscopic hematuria Procedures CT Abdomen/Pelvis Xenia Ortega PA Phone: tel: fax: mailto:[email or web address] Referral ID Status Reason Start Date Expiration Date Visits Re quested Visits Authorized [id number] Closed 06/06/2017 06/06/2018 1 1 Encounter Details Date Type Department Care Team (Late Contact Info) Description 06/06/2017 Ancillary Orders Virtual Department [address] [place] [address] Xenia Ortega PA [address] [address] [email or web address] Other microscopic hematuria Social History Tobacco Use Types Packs/Day Years [...] Encounters Date Type Department Care Team (Late Contact Info) Description 06/07/2025 10:30 AM EDT Office Visit [facility] [address] [place] [address] Vasu Lam MD [address] [place] [address], [address] [place] [address] [email or web address] documented as of this encounter Results * CT ABDOMEN/PELVIS WITH AND WITHOUT CONTRAST (06/19/2017 10:23 AM EDT) Anatomical Region Laterality Modality Abdomen, Pelvis Computed Tomogra phy 06/19/2017 10:5 6 AM EDT Impressions 06/19/2017 11:07 AM EDT Bilateral non-obstructing intrarenal calculi. No other specific etiology of hematuria apparent. Small bilateral renal parapelvic cysts. Chronic hepatic cavernous hemangioma. Nonspecific fibrofatty infiltration of the sigmoid welch without evidence of acute diverticulitis. Prominent left lower lobe pulmonary nodule representing an interval change from 2007. Dedicated chest CT recommended for further evaluation. TOTAL CTDIvol: 17.50 mGy POS - [id number] Narrative 06/19/2017 11:07 AM EDT COMPARISON: 04/03/2007 CT TECHNIQUE: Water is used as an oral contrast agent. Precontrast views are obtained from the kidneys through the inferior pubic rami. Intravenous contrast is then administered and scanning obtained at ninety seconds from the dome of the liver to the iliac crests. Delayed scanning is then obtained from above the kidneys through the inferior pubic rami. Multiplanar reformatted images obtained. Automated exposure control utilized. FINDINGS: There is a 3 mm calculus in the interpolar aspect of the right kidney and a 3 mm calculus in the lower pole. There is a 2 mm calculus in the medial interpolar cortex of the left kidney. No hydronephrosis, perinephric stranding, or ureteral or bladder calculi are apparent. No renal cortical mass or dominant cyst noted. Multiple small parapelvic cysts are present bilaterally. No significant uroendothelial irregularities are noted. There is a lobular mass projecting off of the caudal aspect of the right hepatic lobe which displays peripheral enhancement on the 92nd images and becomes relatively isodense to adjacent hepatic parenchyma on the delayed images, consistent with chronic cavernous hemangioma. No new hepatic mass identified. Small gallbladder calculus without choledocholithiasis apparent. No perihepatic ascites. Spleen and adrenal glands are unremarkable in appearance. No pancreatic mass or peripancreatic inflammatory changes are noted. No aortoiliac aneurysm. No evidence of small bowel obstruction. No paracolic inflammatory changes are seen but there does seem appear to be fibrofatty infiltration of the sigmoid welch. No free fluid collections are demonstrated in the dependent portion of the pelvis. Patient is now status-post hysterectomy. No aortoiliac aneurysm. No pathologically enlarged mesenteric or para-aortic lymph nodes are demonstrated. There is an 11 mm diameter left lower lobe pulmonary nodule not demonstrated on the prior study, with adjacent satellite nodules present. No right basilar nodule seen. No acute traumatic or destructive skeletal lesions are noted. Procedure Note Ed Quiros MD - 06/19/2017 COMPARISON: 04/03/2007 CT TECHNIQUE: Water is used as an oral contrast agent. Precontrast viewsare obtained from the kidneys through the inferior pubic rami.Intravenous contrast is then administered and scanning obtained at ninetyseconds from the dome of the liver to the iliac crests. Delayed scanningis then obtained from above the kidneys through the inferior pubic rami.Multiplanar reformatted images obtained. Automated exposure controlutilized. FINDINGS: There is a 3 mm calculus in the interpolar aspect of the right kidney elana 3 mm calculus in the lower pole. There is a 2 mm calculus in the medialinterpolar cortex of the left kidney. No hydronephrosis, perinephricstranding, or ureteral or bladder calculi are apparent. No renal corticalmass or dominant cyst noted. Multiple small parapelvic cysts are presentbilaterally. No significant uroendothelial irregularities are noted. There is a lobular mass projecting off of the caudal aspect of the righthepatic lobe which displays peripheral enhancement on the 92nd images andbecomes relatively isodense to adjacent hepatic parenchyma on the delayedimages, consistent with chronic cavernous hemangioma. No new hepatic massidentified. Small gallbladder calculus without choledocholithiasisapparent. No perihepatic ascites. Spleen and adrenal glands are unremarkable in appearance. No pancreaticmass or peripancreatic inflammatory changes are noted. No aortoiliac aneurysm. No evidence of small bowel obstruction. Noparacolic inflammatory changes are seen but there does seem appear to befibrofatty infiltration of the sigmoid welch. No free fluid collectionsare demonstrated in the dependent portion of the pelvis. Patient is nowstatus-post hysterectomy. No aortoiliac aneurysm. No pathologically enlarged mesenteric orpara-aortic lymph nodes are demonstrated. There is an 11 mm diameter left lower lobe pulmonary nodule notdemonstrated on the prior study, with adjacent satellite nodules present.No right basilar nodule seen. No acute traumatic or destructive skeletallesions are noted. IMPRESSION: Bilateral non-obstructing intrarenal calculi. No other specific etiologyof hematuria apparent. Small bilateral renal parapelvic cysts. Chronic hepatic cavernous hemangioma. Nonspecific fibrofatty infiltrationof the sigmoid welch without evidence of acute diverticulitis. Prominent left lower lobe pulmonary nodule representing an interval changefrom 2007. Dedicated chest CT recommended for further evaluation. TOTAL CTDIvol: 17.50 mGy POS - [id number] Xenia WINTER IMG CT ABD/PELVIS Final Re sult documented in this encounter Visit Diagnoses Diagnosis Other microscopic hematuria Other microscopic hematuria documented in this encounter Care Teams Parks And Recreation Worker Relationship Specialty Start Date End Date Nataly Agustin MD [email or web address] PCP - General Internal Medicine 03/25/17 12/02/22 Al Reagan MD [address] [place] [address] [email or web address] PCP - General Internal Medicine 12/03/22 12/07/24 Vasu Lam MD [address] [place] [address], [address] [place] [address] [email or web address] PCP - General Internal Medicine 12/08/24 Lisa Luque FNP [address] [facility], [address] [place] [address] [email or web address] Historical LMR Provider 01/13/17 04/07/21 Nathalie Cook MD [address] [facility], [address] [place] [address] Historical LMR Provider 01/13/17 04/07/21 Yogi Payan MD Historical LMR Provider 01/13/17 04/07/21 Al Reagan MD [address] [place] [address] [email or web address] Insurance Assigned Provider 10/04/23 12/07/24 Leticia Estevez, RN [address] [place] [address] [email or web address] Element Burner 12/24/23 01/29/24 Sotero Gray MD [address] [address] [email or web address] Nephrology 12/08/24 Ed Davalos MD [address] [place] [address] [email or web address] Gastroenterology 12/08/24 Sage Harrington MD [address] [place] [address] [email or web address] Medical Oncology 12/08/24 Lupe Wade, BIT GATHERER [address] [place] [address] Psychiatry 12/08/24 documented as of this encounter Additional Source Comments The information contained in this document represents components of the legal health record. It is not the complete legal health record.[facility]
--- OUTSIDE RECORDS SUMMARY | 2025-03-22 08:19 | XMS_ITS | Encounter Summary ---
Author Organization [facility] [place], Address [address] [place] [address] Phone Care Team Providers Care Electrophysiology Technologist Name Role Phone Al Reagan MD Primary Care Provider [phone] Encounter Details Date Type Department Care Team (Late st Contact Info) Description 05/21/2024 Documentation Only [facility] [place], [address] [place] [address] [place] [address] [place] [phone] Social History Tobacco Use Types Packs/Day [...] Visit [facility] MA[address] [place] [phone] Sotero Gray MD [address] [place] [address] [place] [phone] documented as of this encounter Visit Diagnoses Not on filedocumented in this encounter Care Teams Electrophysiology Technologist Relationship Specialty Start Date End Date Al Reagan MD [address] [place] [address] PCP - General Internal Medicine 05/20/24 documented as of this encounter
--- OUTSIDE RECORDS SUMMARY | 2025-03-22 08:19 | XMS_ITS | Encounter Summary ---
Author Organization [facility] Address [address] [facility] [address] [place] [address] Phone Care Team Providers Care Tmd Teacher Assistant Name Role Phone Lisa Luque MARKET RESEARCH MANAGER Unavailable [phone] Nathalie Cook MD Unavailable [phone] Yogi Payan MD Unavailable [email or web address] MD Primary Care Provider Al Reagan MD Primary Care Provider Al Reagan MD Unavailable Leticia Estevez RN Unavailable [phone] Vasu Lam MD Primary Care Provider [phone] Sotero Gray MD Unavailable David Davalos MD Unavailable [phone] Sage Harrington MD Unavailable Lupe Wade ARCHEOLOGY FACULTY MEMBER Unavailable [phone] Encounter Details Date Type Department Care Team (Latest Contact Info) Description 06/05/2017 Transcribe Orders [facility] Phleb Radha [address] [place] [address] Jasbir Kinney MD [address] [facility], [address] [place] [address] [email or web address] Microscopic hematuria (Primary Dx) Social History Tobacco Use Types [...] [facility] [address] [place] [address] [place] [address] Vasu Lam MD [address] [place] [address], [address] [place] [address] [email or web address] documented as of this encounter Results * Creatinine/eGFR (06/05/2017 3:29 PM EST) CREATININE 0.90 0.5 - 1.5 mg/dL [facility] EGFR 66 >59 mL/min/1.7 3m2 [facility] Comment:If patient is black, multiply result by 1.159. The eGFR calculation has changed from the MDRD equation to the CKD-EPI equation as of June 03, 2017. Blood 06/05/2017 3:29 PM EST 06/05/2017 3:32 PM EST us Jasbir Kinney MD LAB BLOOD BKR ORDERABLES Final Result [facility] [address] [place] [address] * (ABNORMAL) BUN (06/05/2017 3:29 PM EST) BUN 20(H) 6 - 19 mg/dL [facility] Blood 06/05/2017 3:29 PM EST 06/05/2017 3:32 PM EST us Jasbir Kinney MD LAB BLOOD BKR ORDERABLES Final Result [facility] [address] [place] [address] documented in this encounter Visit Diagnoses Diagnosis Microscopic hematuria- Primary documented in this encounter Care Teams Tmd Teacher Assistant Relationship Specialty Start Date End Date Nataly Agustin MD [email or web address] PCP - General Internal Medicine 03/25/17 12/02/22 Al Reagan MD [address] [place] [address] [email or web address] PCP - General Internal Medicine 12/03/22 12/07/24 Vasu Lam MD [address] [place] [address], [address] [place] [address] [email or web address] PCP - General Internal Medicine 12/08/24 Lisa Luque FNP [address] [facility] [address], [address] [place] [address] [email or web address] Historical LMR Provider 01/13/17 04/07/21 Nathalie Cook MD [address] [facility], [address] [place] [address] Historical LMR Provider 01/13/17 04/07/21 Yogi Payan MD Historical LMR Provider 01/13/17 04/07/21 Al Reagan MD [address] [place] [address] [email or web address] Insurance Assigned Provider 10/04/23 12/07/24 Leticia Estevez, RN [address] [place] [address] [email or web address] Major Gifts Officer 12/24/23 01/29/24 Sotero Gray MD [address] [address] [email or web address] Nephrology 12/08/24 David Davalos MD [address] [place] [address] [email or web address] Gastroenterology 12/08/24 Sage Harrington MD [address] [place] [address] [email or web address] Medical Oncology 12/08/24 Lupe Wade, ARCHEOLOGY FACULTY MEMBER [address] [place] [address] Psychiatry 12/08/24 documented as of this encounter Additional Source Comments The information contained in this document represents components of the legal health record. It is not the complete legal health record.[facility]
--- OUTSIDE RECORDS SUMMARY | 2025-03-22 08:19 | XMS_ITS | Encounter Summary ---
Author Organization [facility] [place], Address [address] [place] [address] Phone Care Team Providers Care Trust Vault Custodian Name Role Phone Al Reagan MD Primary Care Provider [phone] Encounter Details Date Type Department Care Team (Late st Contact Info) Description 09/10/2024 Orders Only [facility] [address] [place] [address] Sotero Gray MD [address] [place] [address] [place] [address] Stage 3b chronic kidney disease [...] Visit [facility] [address] [place] [phone] Sotero Gray MD [address] [facility] [place] [address] documented as of this encounter Visit Diagnoses Diagnosis Stage 3b chronic kidney disease (HCC) Benign essential hypertension documented in this encounter Care Teams Trust Vault Custodian Relationship Specialty Start Date End Date Al Reagan MD [address] [place] [address] PCP - General Internal Medicine 05/20/24 documented as of this encounter
--- OUTSIDE RECORDS SUMMARY | 2025-03-22 08:19 | XMS_ITS | Encounter Summary ---
Author Organization [facility] [place], Address [address] [place] [address] Phone Care Team Providers Care Protective Signal Installer Name Role Phone Al Reagan MD Primary Care Provider [phone] Encounter Details Date Type Department Care Team (Late st Contact Info) Description 05/31/2024 Documentation Only [facility] [address] [place] [address] Leslie Matute [address] [place] [address] Social History Tobacco Use Types [...] Visit [facility] Marvin MAIN [address] [place] [phone] Sotero Gray MD [address] [place] [address] [place] [phone] documented as of this encounter Visit Diagnoses Not on filedocumented in this encounter Care Teams Protective Signal Installer Relationship Specialty Start Date End Date Al Reagan MD [address] [place] [address] PCP - General Internal Medicine 05/20/24 documented as of this encounter
--- OUTSIDE RECORDS SUMMARY | 2025-03-22 08:19 | XMS_ITS | Encounter Summary ---
Author Organization [facility] Address [address] [place] [address] Phone Care Team Providers Care Salvage Winder And Inspector Name Role Phone Lisa Luque BOLA Unavailable [phone] Nathalie Cook MD Unavailable [phone] Yogi Payan MD Unavailable [email or web address] Nataly Agustin MD Primary Care Provider [phone] Al Reagan MD Primary Care Provider Al Reagan MD Unavailable Leticia Esteevz RN Unavailable [phone] Vasu Lam MD Primary Care Provider [phone] Sotero Gray MD Unavailable Ed Davalos MD Unavailable [phone] Sage Harrington MD Unavailable Lupe Wade TOOL CHASER Unavailable [phone] Reason for Referral * MRI/CAT Scan - Closed Specialty Diagnoses / Procedures Referred By Arnaldo alfaro Referred To Contact Radiology Diagnoses Lung nodule Procedures CT Chest Nataly Agustin MD Phone: tel: [email or web address] Referral ID Status Reason Start Date Expiration Date Visits Re quested Visits Authorized [id number] Closed 06/25/2017 06/25/2018 1 1 Encounter Details Date Type Department Care Team (Late Contact Info) Description 06/25/2017 Ancillary Orders Virtual Department [address] [place] [address] Nataly Agustin MD [address] [place] [address] [email or web address] Lung nodule Social History Tobacco Use Types Packs/Day Years [...] Description 06/07/2025 10:30 AM EDT Office Visit [facility] [address] [place] [address] Vasu Lam MD [address] [place] [address], [address] [place] [address] [email or web address] documented as of this encounter Results * CT CHEST WITH CONTRAST (07/04/2017 10:22 AM EDT) Anatomical Region Laterality Modality Chest Computed Tomogra phy 07/04/2017 10:2 1 AM EDT Impressions 07/04/2017 10:30 AM EDT Solid left lower lobe pulmonary nodule and left upper lobe ground-glass nodule. Pulmonary consultation and possible PET/CT recommended, although the size of the left lower lobe nodule is borderline for PET resolution. No mediastinal lymphadenopathy. TOTAL CTDIvol: 15.60 mGy POS - [id number] Narrative 07/04/2017 10:30 AM EDT COMPARISON: 06/19/2017 CT TECHNIQUE: After the administration of intravenous contrast, computed tomography is obtained from lung apex to base. Sagittal and coronal reformats generated. Automated exposure control utilized. FINDINGS: There is a 9 mm ground-glass nodular focus in the left upper lobe (series 6 image 67), with the previously demonstrated left lower lobe nodule currently measuring approximately 10 mm in greatest transverse dimension. No additional parenchymal nodules identified. There are non-specific interstitial opacities along the medial aspect of the right lower lobe adjacent to the azygoesophageal recess, suspected to represent chronic change or scarring. No consolidated airspace infiltrate or pleural effusion demonstrated. No bronchiectasis or discrete endotracheal or endobronchial nodules detected. No pathologically enlarged mediastinal or hilar lymph nodes or significant pericardial effusion. There is a small amount of fluid in the azygoesophageal recess. No supraclavicular mass or axillary lymphadenopathy demonstrated. No traumatic or destructive skeletal lesions are seen. Cholelithiasis and left nephrolithiasis are again demonstrated. Adrenal glands are not enlarged. Remainder of the visualized upper abdominal visceral structures are grossly stable. Procedure Note Ed Quiros MD - 07/04/2017 COMPARISON: 06/19/2017 CT TECHNIQUE: After the administration of intravenous contrast, computedtomography is obtained from lung apex to base. Sagittal and coronalreformats generated. Automated exposure control utilized. FINDINGS: There is a 9 mm ground-glass nodular focus in the left upper lobe (series6 image 67), with the previously demonstrated left lower lobe nodulecurrently measuring approximately 10 mm in greatest transverse dimension.No additional parenchymal nodules identified. There are non-specificinterstitial opacities along the medial aspect of the right lower lobeadjacent to the azygoesophageal recess, suspected to represent chronicchange or scarring. No consolidated airspace infiltrate or pleuraleffusion demonstrated. No bronchiectasis or discrete endotracheal orendobronchial nodules detected. No pathologically enlarged mediastinal or hilar lymph nodes or significantpericardial effusion. There is a small amount of fluid in theazygoesophageal recess. No supraclavicular mass or axillary lymphadenopathy demonstrated. Notraumatic or destructive skeletal lesions are seen. Cholelithiasis and left nephrolithiasis are again demonstrated. Adrenalglands are not enlarged. Remainder of the visualized upper abdominalvisceral structures are grossly stable. IMPRESSION: Solid left lower lobe pulmonary nodule and left upper lobe ground-glassnodule. Pulmonary consultation and possible PET/CT recommended, althoughthe size of the left lower lobe nodule is borderline for PET resolution.No mediastinal lymphadenopathy. TOTAL CTDIvol: 15.60 mGy POS - [id number] us Nataly Agustin MD IMG CT CHEST Final Result documented in this encounter Visit Diagnoses Diagnosis Lung nodule Other diseases of lung, not elsewhere classified Lung nodule Other diseases of lung, not elsewhere classified documented in this encounter Care Teams Salvage Winder And Inspector Relationship Specialty Start Date End Date Nataly Agustin MD PCP - General Internal Medicine 03/25/17 12/02/22 Al Reagan MD [address] [place] [address] PCP - General Internal Medicine 12/03/22 12/07/24 Vasu Lam MD [address] [place] [address], [address] [place] [address] PCP - General Internal Medicine 12/08/24 Lisa Luque FNP [address] [facility], [address] [place] [address] Historical LMR Provider 01/13/17 04/07/21 Nathalie Cook MD [address] [facility], [address] [place] [address] [email or web address] Historical LMR Provider 01/13/17 04/07/21 Yogi Payan MD Historical LMR Provider 01/13/17 04/07/21 Al Reagan MD [address] [place] [address] [email or web address] Insurance Assigned Provider 10/04/23 12/07/24 Leticia Estevez, RN [address] [place] [address] [email or web address] PHCM Math Coach 12/24/23 01/29/24 Sotero Gray MD [address] [address] [email or web address] Nephrology 12/08/24 Ed Davalos MD [address] [place] [address] [email or web address] Gastroenterology 12/08/24 Sage Harrington MD [address] [place] [address] [email or web address] Medical Oncology 12/08/24 Lupe Wade, TOOL CHASER [address] [place] [address] Psychiatry 12/08/24 documented as of this encounter Additional Source Comments The information contained in this document represents components of the legal health record. It is not the complete legal health record.[facility]
--- OUTSIDE RECORDS SUMMARY | 2025-03-22 08:19 | XMS_ITS | Encounter Summary ---
Author Organization [facility] [place], Address [address] [place] [address] Phone Care Team Providers Care System Programmer Name Role Phone Al Reagan MD Primary Care Provider [phone] Encounter Details Date Type Department Care Team (Late st Contact Info) Description 05/31/2024 Documentation Only [facility] [address] [place] [address] [address] [place] [address] Social History Tobacco Use Types [...] Visit [facility] [address] [place] [phone] Sotero Gray MD [address] [place] [address] [place] [phone] documented as of this encounter Visit Diagnoses Not on filedocumented in this encounter Care Teams System Programmer Relationship Specialty Start Date End Date Al Reagan MD [address] [place] [address] PCP - General Internal Medicine 05/20/24 documented as of this encounter
--- OUTSIDE RECORDS SUMMARY | 2025-03-22 08:19 | XMS_ITS | Encounter Summary ---
Author Organization [facility] Address [address] [facility] [address] [place] [address] Phone Care Team Providers Care Management Internship Name Role Phone Lisa Luque ALPINE PATROLLER Unavailable [phone] Nathalie Cook MD Unavailable [phone] Ygoi Payan MD Unavailable [email or web address] Nataly Pratt MD Primary Care Provider Al Reagan MD Primary Care Provider [phone] Al Reagan MD Unavailable Leticia Estevez RN Unavailable [phone] Vasu Lam MD Primary Care Provider [phone] Sotero Gray MD Unavailable David Davalos MD Unavailable [phone] Sage Harrington MD Unavailable Lupe Wade ADMINISTRATIVE DIETITIAN Unavailable [phone] Encounter Details Date Type Department Care Team (Latest Contact Info) Description 06/16/2018 Transcribe Orders [facility] Radha [address] [place], [place] [id number] David Davalos MD [address] [facility] [address] [place], [place] [phone] [email or web address] Crohn's disease of colon with complication (Primary Dx); Diarrhea, unspecified type Social History Tobacco Use Types Packs/Day Years [...] Description 06/07/2025 10:30 AM EDT Office Visit [facility] [address] [place] [address] Vasu Lam MD [address] [place] [address], [address] [place] [address] [email or web address] documented as of this encounter Results * C. difficile PCR (06/17/2018 8:30 AM EDT) [facility] C.DIFFICILE PCR Negative Negative [facility] C.DIFFICILE STRAIN PRESUMPTIVE NEGATIVE PRESUMPTIVE NEGATIVE [facility] Comment:Detection of 027/NAP 1/BI strains of C.difficile is presumptive and is solely for epidemiological purposes and is not intended to guide or monitor treatment of infections. Stool (Stool) 06/17/2018 8:3 0 AM EDT 06/17/2018 10:42 AM EDT David Davalos MD LAB BODY FLUIDS AND STOOL SIOBHAN ARAYA Final Result [facility] [address] [place] [address] * (ABNORMAL) Zinc (06/16/2018 11:51 AM EDT) ZINC 0.50(L) 0.66 - 1.10 mcg/mL [facility] MED/[facility]PERIOR Comment: (NOTE) ADDITIONAL INFORMATION This test was developed and its performance characteristics determined by [facility] in a manner consistent with CLIA requirements. This test has not been cleared or approved by the U.S. Food and Drug Administration. Blood 06/16/2018 11:5 1 AM EDT 06/16/2018 11:58 AM EDT David Davalos MD LAB BLOOD ORDERABLES Final Res ult Performing Organization Address City/[facility]/ZIP Co de Phone Number [facility] LAB MED/[facility] [address] [place] [address] * Vitamin B12 (06/16/2018 11:51 AM EDT) Pathologist [facility] VITAMIN B12 811 232 - 1,245 pg/mL [facility] Blood 06/16/2018 11:5 1 AM EDT 06/16/2018 11:58 AM EDT David Davalos MD LAB BLOOD BKR ORDERABLES Final Result Performing Organization Address [facility] Co de Phone Number [address] [address] * Magnesium (06/16/2018 11:51 AM EDT) Pathologist [facility] MAGNESIUM 2.1 1.6 - 2.6 mg/dL [facility] Blood 06/16/2018 11:5 1 AM EDT 06/16/2018 11:58 AM EDT David Davalos MD LAB BLOOD BKR ORDERABLES Final Result Performing Organization Address [facility] Co de Phone Number [address] [phone] * Ferritin (06/16/2018 11:51 AM EDT) FERRITIN 60 13 - 150 ug/L [facility] Blood 06/16/2018 11:5 1 AM EDT 06/16/2018 11:58 AM EDT us David Davalos MD LAB BLOOD BKR ORDERABLES Final Result Performing Organization Address City/[facility]/ZIP Co de Phone Number [address] [address] * (ABNORMAL) C-Reactive Protein (06/16/2018 11:51 AM EDT) Pathologist [facility] C REACTIVE PROTEIN 21.7(H) 0.0 - 4.0 mg/L [facility] Blood 06/16/2018 11:5 1 AM EDT 06/16/2018 11:58 AM EDT us David Davalos MD LAB BLOOD BKR ORDERABLES Final Result Performing Organization Address City/[facility] Co de Phone Number [address] [address] * (ABNORMAL) Comprehensive metabolic panel (06/16/2018 11:51 AM EDT) [facility] SODIUM 139 133 - 146 mmol/L [facility] POTASSIUM 4.3 3.3 - 5.1 mmol/L [facility] CHLORIDE 101 96 - 108 mmol/L [facility] CO2 27 21 - 35 mmol/L [facility] BUN 19 6 - 19 mg/dL [facility] CREATININE 0.90 0.5 - 1.5 mg/dL [facility] GLUCOSE 117(H) 70 - 99 mg/dL [facility] ALBUMIN 3.5(L) 3.9 - 4.8 g/dL [facility] TOTAL PROTEIN 7.0 6.5 - 8.0 g/dL [facility] CALCIUM 9.2 8.4 - 10.3 mg/dL [facility] ALKALINE PHOSPHATASE 77 39 - 117 U/L [facility] TOTAL BILIRUBIN <0.2 0.0 - 1.2 mg/dL [facility] Comment: Results from certain multiple myeloma patients may show a positive bias in recovery. Not all multiple myeloma patients show the bias and severity of the bias may vary between patients. In very rare cases, gammopathy, in particular type IgM (Waldenstrom's macroglobulinemia), may cause unreliable results. AST 20 0 - 37 U/L [facility] ALT 12 0 - 40 U/L [facility] GLOBULIN 3.5 1 - 4.8 g/dL [facility] EGFR 66 >59 mL/min/1.7 3m2 [facility] Comment:If patient is black, multiply result by 1.159. Estimated glomerular filtration rate calculated using the CKD-EPI equation. ANION GAP 15 10 - 20 mmol/L [facility] Blood 06/16/2018 11:5 1 AM EDT 06/16/2018 11:58 AM EDT us David Davalos MD LAB BLOOD BKR ORDERABLES Final Result Performing Organization Address City/State/[facility] Co de Phone Number [address] [address] * (ABNORMAL) CBC (06/16/2018 11:51 AM EDT) WBC 11.72(H) 3.40 - 11.20 K/uL [facility] RBC 4.09 3.80 - 4.80 M/uL [facility] HGB 12.5 12.0 - 15.0 g/dL [facility] HCT 39.1 36.0 - 46.0 % [facility] PLT 299 130 - 400 K/uL [facility] MCV 95.6 79.0 - 98.0 fL [facility] MCH 30.6 27.0 - 34.8 pg [facility] MCHC 32.0 31.5 - 36.0 g/dL [facility] RDW 15.5(H) 10.8 - 14.6 % [facility] MPV 10.1 9.4 - 12.4 [facility] NRBC 0.00 0.00 /100 WBCs [facility] ABSOLUTE NRBC 0.00 0.00 K/uL [facility] Blood 06/16/2018 11:5 1 AM EDT 06/16/2018 11:58 AM EDT us David Davalos MD LAB BLOOD BKR ORDERABLES Final Result Performing Organization Address City/State/[facility] Co de Phone Number [facility] [address] [place] [address] documented in this encounter Visit Diagnoses Diagnosis Crohn's disease of colon with complication- Primary Diarrhea, unspecified type documented in this encounter Care Teams Management Internship Relationship Specialty Start Date End Date Nataly Agustin MD [email or web address] PCP - General Internal Medicine 03/25/17 12/02/22 Al Reagan MD [address] [place] [address] [email or web address] PCP - General Internal Medicine 12/03/22 12/07/24 Vasu Lam MD [address] [place] [address], [address] [place] [address] PCP - General Internal Medicine 12/08/24 Lisa Luque FNP [address] [facility], [address] [place] [address] [email or web address] Historical LMR Provider 01/13/17 04/07/21 Nathalie Cook MD [address], [address] [place] [address] Historical LMR Provider 01/13/17 04/07/21 Yogi Payan MD Historical LMR Provider 01/13/17 04/07/21 Al Reagan MD [address] [place] [address] [email or web address] Insurance Assigned Provider 10/04/23 12/07/24 Leticia Estevez, RN [address] [place] [address] [email or web address] PHCM Snowmobile Mechanic 12/24/23 01/29/24 Sotero Gray MD [address] [address] [email or web address] Nephrology 12/08/24 David Davalos MD [address] [place] [address] [email or web address] Gastroenterology 12/08/24 Sage Harrington MD [address] [place] [address] [email or web address] Medical Oncology 12/08/24 Lupe Wade, ADMINISTRATIVE DIETITIAN [address] [place] [address] Psychiatry 12/08/24 documented as of this encounter Additional Source Comments The information contained in this document represents components of the legal health record. It is not the complete legal health record.[facility]
--- OUTSIDE RECORDS SUMMARY | 2025-03-22 08:19 | XMS_ITS | Encounter Summary ---
Author Organization [facility] [place], Address [address] [place] [address] Phone Care Team Providers Care Residential Instructor Name Role Phone Al Reagan MD Primary Care Provider [phone] Encounter Details Date Type Department Care Team (Late st Contact Info) Description 05/31/2024 Documentation Only [facility] [address] [place] [address] Leslie Matute [address] [place] [address] Social History Tobacco Use Types [...] Visit [facility] [address] [place] [phone] Sotero Gray MD [address] [place] [address] [place] [phone] documented as of this encounter Visit Diagnoses Not on filedocumented in this encounter Care Teams Residential Instructor Relationship Specialty Start Date End Date Al Reagan MD [address] [place] [address] PCP - General Internal Medicine 05/20/24 documented as of this encounter
--- OUTSIDE RECORDS SUMMARY | 2025-03-22 08:19 | XMS_ITS | Encounter Summary ---
Author Organization [facility] Address [address] [place] [address] Phone Care Team Providers Care Acetylene Torch Solderer Name Role Phone Lisa Luque DIRECTOR FURNITURE Unavailable Nathalie Cook MD Unavailable Yogi Payan MD Unavailable [email or web address] Nataly Agustin MD Primary Care Provider [phone] Al Reagan MD Primary Care Provider [phone] Al Reagan MD Unavailable Leticia Estevez RN Unavailable Vasu Lam MD Primary Care Provider [phone] Sotero Gray MD Unavailable Ed Davalos MD Unavailable [phone] Sage Harrington MD Unavailable Lupe Wade DIRECTOR OF ANALYTICAL DEVELOPMENT Unavailable Encounter Details Date Type Department Care Team (Late st Contact Info) Description 03/19/2019 Ancillary Orders Virtual Department [address] [place] [address] Nataly Agustin MD [address] [place] [address] Breast screening Social History Tobacco Use Types [...] Description 06/07/2025 10:30 AM EDT Office Visit [facility] [address] [place] [address] [place] [address] Vasu Lam MD [address] [place] [address], [address] [place] [address] [email or web address] documented as of this encounter Results * BI MAMMOGRAM SCREENING WITH TOMOSYNTHESIS WITH CAD (BILATERAL) (04/05/2019 1:46 PM EST) Anatomical Region Laterality Modality Breast Left, Breast Right, Breast Bilateral Bila teral Mammography 04/05/2019 2:56 PM EST Impressions 04/05/2019 2:59 PM EST No mammographic evidence of malignancy. BI-RADS CATEGORY: 2 - Benign finding. DENSITY: The breast tissue is heterogeneously dense, an appearance which lowers the sensitivity of mammography. POS - [id number] Narrative 04/05/2019 2:59 PM EST Standard digital full-field 2-D C view and two-plane tomographic imaging was performed and compared with multiple prior studies, most recently 04/03/2018, with utilization of computer-aided detection. The breast parenchyma is heterogeneously dense, somewhat limiting mammographic sensitivity. The stromal markings are essentially unchanged in overall appearance and distribution. No dominant spiculated mass, suspicious clustered microcalcifications, or focal zone of pathologic skin thickening or retraction are noted to have arisen in the interim. Stable benign-appearing calcifications bilaterally. Procedure Note Ed Quiros MD - 04/05/2019 Standard digital full-field 2-D C view and two-plane tomographic imagingwas performed and compared with multiple prior studies, most [id number]/04/2019, with utilization of computer-aided detection. The breast parenchyma is heterogeneously dense, somewhat limitingmammographic sensitivity. The stromal markings are essentially unchangedin overall appearance and distribution. No dominant spiculated mass,suspicious clustered microcalcifications, or focal zone of pathologic skinthickening or retraction are noted to have arisen in the interim. Stablebenign-appearing calcifications bilaterally. IMPRESSION: No mammographic evidence of malignancy. BI-RADS CATEGORY: 2 - Benign finding. DENSITY: The breast tissue is heterogeneously dense, an appearance whichlowers the sensitivity of mammography. POS - [id number] us Nataly Agustin MD IMG MG EXAMS Final Result documented in this encounter Visit Diagnoses Diagnosis Breast screening Breast screening, unspecified Breast screening Breast screening, unspecified documented in this encounter Care Teams Acetylene Torch Solderer Relationship Specialty Start Date End Date Nataly Agustin MD PCP - General Internal Medicine 03/25/17 12/02/22 Al Reagan MD [address] [place] [address] PCP - General Internal Medicine 12/03/22 12/07/24 Vasu Lam MD [address] [place] [address], [address] [place] [address] PCP - General Internal Medicine 12/08/24 Lisa Luque FNP [address] [place] [address] 204, [address] [place] [address] [email or web address] Historical LMR Provider 01/13/17 04/07/21 Nathalie Cook MD [address] [place] [address]. 204, [address] [place] [address] [email or web address] Historical LMR Provider 01/13/17 04/07/21 Yogi Payan MD [email or web address] Historical LMR Provider 01/13/17 04/07/21 Al Reagan MD [address] [place] [address] [email or web address] Insurance Assigned Provider 10/04/23 12/07/24 Leticia Estevez RN [address] [place] [address] [email or web address] PHC Pyrotechnician 12/24/23 01/29/24 Sotero Gray MD [address] [address] [email or web address] Nephrology 12/08/24 Ed Davalos MD [address] [place] [address] [email or web address] Gastroenterology 12/08/24 Sage Harrington MD [address] [place] [address] [email or web address] Medical Oncology 12/08/24 Lupe Wade, DIRECTOR OF ANALYTICAL DEVELOPMENT [address] [place] [address] Psychiatry 12/08/24 documented as of this encounter Additional Source Comments The information contained in this document represents components of the legal health record. It is not the complete legal health record.[facility]
--- OUTSIDE RECORDS SUMMARY | 2025-03-22 08:19 | XMS_ITS | Encounter Summary ---
Author Organization [facility] [place], Address [address] [place] [address] Phone Care Team Providers Care Electrical Wirer Name Role Phone Al Reagan MD Primary Care Provider [phone] Encounter Details Date Type Department Care Team (Late st Contact Info) Description 06/04/2024 Documentation Only [facility] [address] [place] [address] [place] [address] [place] [phone] Social History Tobacco Use Types Packs/Day [...] Visit [facility] [place] [phone] Sotero Gray MD [address] [facility] [place] [phone] documented as of this encounter Visit Diagnoses Not on filedocumented in this encounter Care Teams Electrical Wirer Relationship Specialty Start Date End Date Al Raegan MD [address] [place] [address] PCP - General Internal Medicine 05/20/24 documented as of this encounter
--- OUTSIDE RECORDS SUMMARY | 2025-03-22 08:19 | XMS_ITS | Encounter Summary ---
Author Organization [facility] Address [address] [place] [address] Phone Care Team Providers Care Manager Ui Name Role Phone Lisa Luque VENETIAN BLIND WORKER Unavailable [phone] Nathalie Cook MD Unavailable [phone] Yogi Payan MD Unavailable [email or web address] Nataly Pratt MD Primary Care Provider Al Reagan MD Primary Care Provider [phone] Al Reagan MD Unavailable Leticia Estevez RN Unavailable [phone] Vasu Lam MD Primary Care Provider [phone] Sotero Gray MD Unavailable David Davalos MD Unavailable [phone] Sage Harrington MD Unavailable Lupe Wade MINE MOTOR OPERATOR Unavailable [phone] Encounter Details Date Type Department Care Team (Latest Contact Info) Description 10/23/2018 Transcribe Orders [address] [id number] David Davalos MD [address] [place] [phone] [email or web address] Diagnosis unknown (Primary Dx) Social History Tobacco Use Types [...] Description 06/07/2025 10:30 AM EDT Office Visit [facility] [address] [place] [address] Vasu Lam MD [address] [place] [address], [address] [place] [address] [email or web address] documented as of this encounter Results * Hepatitis B surface antigen (10/23/2018 3:24 PM EDT) HBV SURFACE ANTIGEN NON-REACTI VE NON-REACTI VE [facility] Blood 10/23/2018 3:24 PM EDT 10/23/2018 3:31 PM EDT us David Davalos MD LAB BLOOD BKR ORDERABLES Final Result [facility] [address] [place] [address] * Hepatitis B surface antibody (10/23/2018 3:24 PM EDT) HBV SURFACE ANTIBODY Negative [facility] Blood 10/23/2018 3:24 PM EDT 10/23/2018 3:31 PM EDT us David Davalos MD LAB BLOOD BKR ORDERABLES Final Result Performing Organization Address [facility] Co de Phone Number [facility] [address] [place], [place] [phone] * Quantiferon-TB Gold (10/23/2018 3:24 PM EDT) [facility] QuantiFERON-TB Gold Negative Negative [facility] Comment: (NOTE) No interferon-gamma response to M. tuberculosis antigens was detected. Infection with M. tuberculosis is unlikely. A single negative result does not exclude infection with M. tuberculosis. In patients at high risk for M.tuberculosis infection, a second test should be considered in accordance with the 2017 ATS/IDSA/CDC Clinical Practice Guidelines for Diagnosis of Tuberculosis in Adults and Children [Lewinsohn DM et. al. Clin. Infect. Dis. 2017;64(2):111-115]. The reference range for the 'TB1 Ag minus Nil Result' and 'TB2 Ag minus Nil Result' is an Interferon-gamma level <0.35 IU/mL. TB1 Ag minus Nil 0.00 IU/mL [facility] TB2 Ag minus Nil 0.00 IU/mL [facility] Mitogen minus Nil 8.84 IU/mL [facility] Nil Result 0.02 IU/mL [facility] Blood 10/23/2018 3:24 PM EDT 10/23/2018 3:31 PM EDT David Davalos MD LAB BLOOD ORDERABLES Final Res ult [facility] [address] [place] [address] documented in this encounter Visit Diagnoses Diagnosis Diagnosis unknown- Primary documented in this encounter Care Teams Manager Ui Relationship Specialty Start Date End Date Nataly Agustin MD [email or web address] PCP - General Internal Medicine 03/25/17 12/02/22 Al Reagan MD [address] [place] [address] PCP - General Internal Medicine 12/03/22 12/07/24 Vasu Lam MD [address] [facility] [place] [address] PCP - General Internal Medicine 12/08/24 Lisa Luque, VENETIAN BLIND WORKER [address] [facility], [address] 204, [address] [place] [address] Historical LMR Provider 01/13/17 04/07/21 Nathalie Cook MD [address] [facility] [address] 204, [address] [place] [address] Historical LMR Provider 01/13/17 04/07/21 Yogi Payan MD Historical LMR Provider 01/13/17 04/07/21 Al Reagan MD 40 [place] [address] Insurance Assigned Provider 10/04/23 12/07/24 Leticia Estevez, RN [address] [place], [place] [phone] PHCM Motor Winder 12/24/23 01/29/24 Sotero Gray MD [address] [facility] [address] [place] [address] Nephrology 12/08/24 David Davalos MD [address] [place] [address] [email or web address] Gastroenterology 12/08/24 Sage Harrington MD [address] [place] [address] [email or web address] Medical Oncology 12/08/24 Lupe Wade, MINE MOTOR OPERATOR [address] [place] [address] Psychiatry 12/08/24 documented as of this encounter Additional Source Comments The information contained in this document represents components of the legal health record. It is not the complete legal health record.[facility]
--- OUTSIDE RECORDS SUMMARY | 2025-03-22 08:19 | XMS_ITS | Encounter Summary ---
Author Organization [facility] [place], Address [address] [place] [address] Phone Care Team Providers Care Vinyl Flooring Installer Name Role Phone Al Reagan MD Primary Care Provider [phone] Encounter Details Date Type Department Care Team (Late st Contact Info) Description 05/31/2024 Documentation Only [facility] [address] [place] [address] Leslie Matute [address] [place] [address] Social History Tobacco Use Types [...] Visit [facility] [address] [place] [phone] Sotero Gray MD [address] [place] [address] [place] [phone] documented as of this encounter Visit Diagnoses Not on filedocumented in this encounter Care Teams Vinyl Flooring Installer Relationship Specialty Start Date End Date Al Reagan MD [address] [place] [address] PCP - General Internal Medicine 05/20/24 documented as of this encounter
--- OUTSIDE RECORDS SUMMARY | 2025-03-22 08:19 | XMS_ITS | Encounter Summary ---
Author Organization [facility] [place], Address [address] [place] [address] Phone Care Team Providers Care Laboratory Technician Name Role Phone Al Reagan MD Primary Care Provider [phone] Encounter Details Date Type Department Care Team (Late st Contact Info) Description 07/16/2024 Orders Only [facility] [address] [place] [address] Sotero Gray MD [address] [place] [address] [place] [address] Stage 3b chronic kidney disease [...] Visit [facility] [address] [place] [phone] Sotero Gray MD [address] [facility] [place] [address] documented as of this encounter Procedures Procedure Name Priority Date/Time Associated Diagnosis Comments RENAL FUNCTION PANEL Routine 07/16/2024 8:25 AM EDT Stage 3b chronic kidney disease (HCC) Benign essential hypertension documented in this encounter Results * (ABNORMAL) Renal Function Panel (07/16/2024 8:25 AM EDT) Glucose 121(H) 70 - 99 mg/dL [facility] BUN 39(H) 8 - 27 mg/dL [facility] Creatinine 1.56(H) 0.57 - 1.00 mg/dL [facility] eGFR CKD-EPI CR 2020 35(L) >59 mL/min/1.7 3 [facility] BUN/Creatinine Ratio 25 12 - 28 [facility] Sodium 141 134 - 144 mmol/L [facility] Potassium 4.8 3.5 - 5.2 mmol/L [facility] Chloride 106 96 - 106 mmol/L [facility] Bicarbonate (CO2) 16(L) 20 - 29 mmol/L [facility] Calcium 9.6 8.7 - 10.3 mg/dL [facility] Albumin 4.3 3.8 - 4.8 g/dL [facility] Phosphorus 3.9 3.0 - 4.3 mg/dL [facility] Blood specimen (specimen) Venous blood / Unknown 07/16/2024 8:25 AM EDT 07/16/2024 us Sotero Gray MD LAB BLOOD ORDERABLES Final Resul t [facility] [address] [place] [address] documented in this encounter Visit Diagnoses Diagnosis Stage 3b chronic kidney disease (HCC) Benign essential hypertension documented in this encounter Care Teams Laboratory Technician Relationship Specialty Start Date End Date Al Reagan MD [address] [place] [address] PCP - General Internal Medicine 05/20/24 documented as of this encounter
--- OUTSIDE RECORDS SUMMARY | 2025-03-22 08:19 | XMS_ITS | Encounter Summary ---
Author Organization [facility] [place], Address [address] [place] [address] Phone Care Team Providers Care Director Clinical Applications Name Role Phone Al Reagan MD Primary Care Provider [phone] Encounter Details Date Type Department Care Team (Late st Contact Info) Description 09/24/2024 Orders Only [facility] [address] [place] [address] Sotero Gray MD [address] [place] [address] [place] [address] Stage 3b chronic kidney disease [...] Visit [facility] [address] [place] [phone] Sotero Gray MD [address] [facility] [place] [address] documented as of this encounter Visit Diagnoses Diagnosis Stage 3b chronic kidney disease (HCC) Benign essential hypertension documented in this encounter Care Teams Director Clinical Applications Relationship Specialty Start Date End Date Al Reagan MD [address] [place] [address] PCP - General Internal Medicine 05/20/24 documented as of this encounter
--- OUTSIDE RECORDS SUMMARY | 2025-03-22 08:19 | XMS_ITS | Encounter Summary ---
Author Organization [facility] [place], Address [address] [place] [address] Phone Care Team Providers Care Insert Operator Name Role Phone Al Reagan MD Primary Care Provider [phone] Encounter Details Date Type Department Care Team (Late st Contact Info) Description 05/20/2024 Documentation Only [facility] [place], [address] [place] [address] [place] [address] [place] [phone] Social History Tobacco Use Types Packs/Day [...] Visit [facility] MAIN [address] [place] [phone] Sotero Gray MD [address] [place] [address] [place] [phone] documented as of this encounter Visit Diagnoses Not on filedocumented in this encounter Care Teams Insert Operator Relationship Specialty Start Date End Date Al Reagan MD [address] [place] [address] PCP - General Internal Medicine 05/20/24 documented as of this encounter
--- OUTSIDE RECORDS SUMMARY | 2025-03-22 08:20 | XMS_ITS | Encounter Summary ---
Author Organization [facility] [place], Address [address] [place] [address] Phone Care Team Providers Care Occupational Health Technician Name Role Phone Al Reagan MD Primary Care Provider [phone] Encounter Details Date Type Department Care Team (Late st Contact Info) Description 10/22/2024 Orders Only [facility] [place] [address] [place] [address] Sotero Gray MD [address] [place] [address] [place] [address] Stage 3b chronic kidney disease [...] Visit [facility] [address] [place] [phone] Sotero Gray MD [address] [facility] [place] [address] documented as of this encounter Visit Diagnoses Diagnosis Stage 3b chronic kidney disease (HCC) Benign essential hypertension documented in this encounter Care Teams Occupational Health Technician Relationship Specialty Start Date End Date Al Reagan MD [address] [place] [address] PCP - General Internal Medicine 05/20/24 documented as of this encounter
--- OUTSIDE RECORDS SUMMARY | 2025-03-22 08:20 | XMS_ITS | Clinical Summary ---
Author Organization [facility] [place], Address [address] [place] [address] Phone Care Team Providers Care Lead Mobile Developer Name Role Phone Al Reagan MD Primary Care Provider [phone] Allergies Active Allergy Reactions Criticality Noted Date Comments Amoxicillin Hives,Swelling 02/13/2017 Other reaction(s): swelling Medications metoprolol tartrate 25 MG tablet Take 12.5 mg by mouth in the morning and 12.5 mg in the evening. Active nortriptyline (PAMELOR) 10 MG capsule Take 10 mg by mouth every night Active loratadine (CLARITIN) 10 MG tablet Take 10 mg by mouth 1 (one) time each day Active Cholecalciferol (Vitamin D) 50 MCG (2000 UT) capsule Take 2,000 Units by mouth 1 (one) time each day Active B Complex Vitamins (VITAMIN B COMPLEX PO) Take 1 capsule by mouth 1 (one) time each day Active citalopram (CeleXA) 20 MG tablet Take 20 mg by mouth 1 (one) time each day Active levothyroxine (SYNTHROID, LEVOTHROID) 50 MCG tablet Take 50 mcg by mouth 1 (one) time each day Active lamoTRIgine (LaMICtal) 25 MG tablet Take 50 mg by mouth in the morning and 50 mg in the evening. Active Fluticasone Furoate-Vilanter ol (Breo Ellipta) 200-25 MCG/ACT aerosol powder Inhale 1 puff 1 (one) time each day Active sodium bicarbonate 650 MG tablet Take 1 tablet (650 mg total) by mouth in the morning and 1 tablet (650 mg total) in the evening and 1 tablet (650 mg total) before bedtime. 270 tablet 3 08/24/2024 Active Active Problems Problem Noted Date Diagnosed Date Acidosis 10/14/2024 Acidosis 06/04/2024 Stage 3b chronic kidney disease 05/31/2024 Vitamin D deficiency Prediabetes Other specified anemia Nephrolithiasis Hyperlipidemia Hyperglycemia Edema of lower extremity Benign essential hypertension Acquired hypothyroidism Immunizations Immunization Administration Dates Next Due H1N1 All Forms 06/02/2009 Influenza Split High Dose Pr eservative Free IM 01/08/2024,12/25/2018,01/05/2017 Influenza Vaccine, Quadrivalent, Adjuvanted 08/2021,12/24/2020 Influenza Whole 06/02/2009 Influenza, Recombinant, Quadrivalent, Pf 020 Influenza, Trivalent, Adjuvanted 03/03/2018 Pfizer SARS-COV-2 06/21/2020 Pneumococcal Conjugate 13-Valent 03/20/2018 Pneumococcal Polysaccharide 04/25/2016 Shingrix 05/25/2020,03/06/2020 Td, Unspecified 04/12/2005 Tdap 12/16/2022,01/28/2018 Social History Tobacco Use Types Packs/Day Years Used Date Smoking Tobacco: Never Smokeless Tobacco: Never Tobacco Cessation:Counseling Given: Not Answered Comments Unknown Sex and Gender Information Value Date Recorded Sex Assigned at Not on file Legal Sex Female 5:17 PM EST Gender Identity Not on file Sexual Orientation Not on file Plan of Treatment Upcoming Encounters Date Type Department Care Team (Late st Contact Info) Description 04/21/2025 11:00 AM EST Office Visit [facility] [place], [place] [address] [place] [address] Sotero Gray MD [address] [place] [address] [place] [phone] Health Maintenance Due Date Last Done Comments Breast Cancer Screening 1950 Colorectal Cancer Screening: Annual FOBT 1998 Colorectal Cancer Screening: Colonoscopy 1998 Colorectal Cancer Screening: Sigmoidoscopy 1998 Influenza Vaccine (#1) 2024 , 01/03/2022, 12/24/2020, Additional history exists Pneumococcal Vaccine: 50+ Years Completed 03/20/2018, 04/25/2016 Pneumococcal Vaccine: Peds (0 to 5 Years) and At-Risk Patients (6 to 49 Years) Discontinued 03/20/2018, 04/25/2016 Hepatitis B Vaccine Aged Out No longe r eligible based on patient's age to complete this topic Insurance Medicare [facility] Care Teams Lead Mobile Developer Relationship Specialty Start Date End Date Al Reagan MD [address] [place] [address] PCP - General Internal Medicine 05/20/24
--- OUTSIDE RECORDS SUMMARY | 2025-03-22 08:20 | XMS_ITS | Encounter Summary ---
Author Organization [facility] [place], Address [address] [place] [address] Phone Care Team Providers Care Services Rep Name Role Phone Al Reagan MD Primary Care Provider [phone] Encounter Details Date Type Department Care Team (Late st Contact Info) Description 11/05/2024 Orders Only [facility] [address] [place] [address] Sotero Gray MD [address] [place] [address] [place] [address] Stage 3b chronic kidney disease [...] Visit [facility] [address] [place] [phone] Sotero Gray MD [address] [facility] [place] [address] documented as of this encounter Visit Diagnoses Diagnosis Stage 3b chronic kidney disease (HCC) Benign essential hypertension documented in this encounter Care Teams Services Rep Relationship Specialty Start Date End Date Al Reagan MD [address] [place] [address] PCP - General Internal Medicine 05/20/24 documented as of this encounter
--- OUTSIDE RECORDS SUMMARY | 2025-03-22 08:20 | XMS_ITS | Encounter Summary ---
Author Organization [facility], Address [address] [place] [address] Phone Care Team Providers Care Ergonomics Technician Name Role Phone Al Reagan MD Primary Care Provider [phone] Encounter Details Date Type Department Care Team (Late st Contact Info) Description 07/30/2024 Orders Only [facility] [address] [place] [address] Sotero Gray MD [address] [place] [address] [place] [address] Stage 3b chronic kidney disease [...] [facility] [address] [place] [phone] Sotero Gray MD [address] [facility] [place] [address] documented as of this encounter Procedures Procedure Name Priority Date/Time Associated Diagnosis Comments RENAL FUNCTION PANEL Routine 08/26/2024 12:17 PM EDT Stage 3b chronic kidney disease (HCC) Benign essential hypertension documented in this encounter Results * (ABNORMAL) Renal Function Panel (08/26/2024 12:17 PM EDT) Glucose 103(H) 70 - 99 mg/dL [facility] BUN 40(H) 8 - 27 mg/dL [facility] Creatinine 1.78(H) 0.57 - 1.00 mg/dL [facility] eGFR CKD-EPI CR 2020 30(L) >59 mL/min/1.7 3 [facility] BUN/Creatinine Ratio 22 12 - 28 [facility] Sodium 134 134 - 144 mmol/L [facility] Potassium 5.8(H) 3.5 - 5.2 mmol/L [facility] Chloride 99 96 - 106 mmol/L [facility] Calcium 10.3 8.7 - 10.3 mg/dL [facility] Phosphorus 4.7(H) 3.0 - 4.3 mg/dL [facility] Albumin 4.7 3.8 - 4.8 g/dL [facility] Bicarbonate (CO2) 16(L) 20 - 29 mmol/L [facility] Blood specimen (specimen) Venous blood / Unknown 08/26/2024 12:17 PM EDT 08/26/2024 us Sotero Gray MD LAB BLOOD ORDERABLES Final Resul t [facility] [address] [place] [phone] documented in this encounter Visit Diagnoses Diagnosis Stage 3b chronic kidney disease (HCC) Benign essential hypertension documented in this encounter Care Teams Ergonomics Technician Relationship Specialty Start Date End Date Al Reagan MD [address] [place] [address] PCP - General Internal Medicine 05/20/24 documented as of this encounter
[2025-03-22 08:40] LABS: MANUAL DIFF FLAG NO
[2025-03-22 09:06] LABS: Hematocrit 39.5 % (37.0-47.0); Hemoglobin 13.0 g/dl (12.0-16.0); Imm Gran Abs Auto 0.04 X10*3/uL (0.00-0.03); Imm Gran Pct Auto 0.7 % (0.0-0.4); Lymphocytes Absolute Auto 0.7 X10*3/uL (1.2-4.9); Mean Corpuscular HGB Conc 32.9 g/dl (31.0-35.0); Mean Corpuscular Hemoglobin 32.4 pg (27.0-33.0); Mean Corpuscular Volume 98.5 fL (80.0-98.0); NRBC Abs Auto 0.000 X10*3/uL (0.0-0.012); NRBC Pct Auto 0.0 /100WBC (0.0-0.2); Platelet Count 204 X10*3/uL (160-400); Red Blood Count 4.01 X10*6/uL (4.20-5.50); White Blood Count 5.6 X10*3/uL (4.8-10.8)
[2025-03-22 09:30] LABS: Hemoglobin A1C 94.3139 umol/L
[2025-03-22 09:49] LABS: Potassium 3.8 mmol/L (3.3-5.1); Sodium 140 mmol/L (135-145)
[2025-03-22 09:50] LABS: Alanine Aminotransferase 21 U/L (0-31); Albumin Level 4.2 g/dL (3.5-5.0); Alkaline Phosphatase 84 U/L (39-117); Anion Gap 12 (12-20); Aspartate Amino Transferase 22 U/L (5-31); Blood Urea Nitrogen 24 mg/dL (9-16); Calcium 9.3 mg/dL (8.4-10.2); Carbon Dioxide 28 mmol/L (22-29); Chloride 104 mmol/L (96-108); Cholesterol 175 mg/dL (<200); Estimated Glomerular Filt Rate 33; HDL Cholesterol 84 mg/dL (>40); Iron 115 mcg/dL (30-160); Magnesium 2.0 mg/dL (1.6-2.6); Percent Iron Saturation 39 % (15-50); Total Iron Binding Capacity 297 mcg/dL (228-428); Total Protein 6.7 g/dL (6.5-8.0); Triglycerides 76 mg/dL (<150); Unsaturated Iron Binding 182 ug/dL
[2025-03-22 09:54] LABS: Osmolality, Serum 293 mosm/kg (281-305)
[2025-03-22 10:20] LABS: Free T4 (Free Thyroxine) 1.15 ng/dL (0.71-1.85); Thyroid Stimulating Hormone 0.80 uIU/mL (0.32-4.0)
[2025-03-22 10:32] LABS: Folate 15.9 ng/mL (> or = 4.0); Vitamin B12 657 pg/mL (200-900)
[2025-03-22 11:15] LABS: Parathyroid Hormone Intact 84.9 pg/mL (8.7-77.1)
== END 2025-03-22 08:13 | disposition home or self-care (01) ==
LOC: HO.LAB 08:12
PROVIDERS: PCP Internal Medicine; Visit Provider Psychiatry & Neurology Psychiatry
DX: Z51.81 Encounter for therapeutic drug level monitoring (principal); F41.1 Generalized anxiety disorder; F39 Unspecified mood [affective] disorder; Z13.6 Encounter for screening for cardiovascular disorders; Z13.21 Encounter for screening for nutritional disorder; Z13.0 Encounter for screening for diseases of the blood and blood-forming organs and certain disorders involving the immune mechanism; Z13.1 Encounter for screening for diabetes mellitus
CPT/HCPCS: 36415; 80053; 80061; 80335; 82306; 82607; 82746; 83036; 83090; 83540; 83735; 83921; 83930; 83935; 83970; 84100; 84425; 84439; 84443; 84480; 84481; 85025; 85652; 86140; 93005

== ENCOUNTER → 2025-03-22 08:17 | Outpatient (BNV) | payer MEDICARE, OTHER, SELFPAY | PROVIDERS: PCP Internal Medicine; Visit Provider Internal Medicine Cardiovascular Disease | DX: R94.31 Abnormal electrocardiogram [ECG] [EKG] (principal); Z13.6 Encounter for screening for cardiovascular disorders | CPT/HCPCS: 93010 ==